=== PATIENT | female | born 1950 | race Caucasian/White ===

== ENCOUNTER 2016-10-27 19:01 | Emergency (ER) | payer MEDICARE, MEDICAID ==
[2016-10-27] MEDS ORDERED: NORMAL SALINE 1000 ML 1,000 ML IV ONE (19:23)
[2016-10-27] MEDS ORDERED: CEFTRIAXONE 1 GM/D5W RTU 50 ML IV ONE (19:25)
[2016-10-27] MEDS ORDERED: AZITHROMYCIN 250 MG TABLET PO ONE (19:25)
--- NOTE | 2016-10-27 19:27 | ER Document Report ---
ED General - General Chief Complaint: Shortness Of Breath Stated Complaint: DIFFICULTY BREATHING Notes: Patient is a 66 year old female who presents with concerns of increased shortness of breath and fever. States the symptoms have been getting progressively worse for the last 4 days. States this feels similar to when she' s had COPD exacerbations of bronchitis in the past. She has not seen her primary care doctor regarding today's concerns. She's been using her albuterol at home with minimal improvement. Nothing worsens or symptoms. Multiple sick contacts a similar illness. She is not had any vomiting or diarrhea. TRAVEL OUTSIDE OF THE [place] IN LAST 30 DAYS: No - Related Data Allergies/Adverse Reactions: ibuprofen [From Motrin] Allergy (Verified 08/22/15 17:44) SWELL Tetanus Vaccines and Toxoid [Tetanus] Allergy (Verified 08/22/15 17:44) Nausea Past Medical History - General Information source: Patient - Social History Smoking Status: Former Smoker Chew tobacco use (# tins/day): No Frequency of alcohol use: None Drug Abuse: None Lives with: Family Family History: Reviewed & Not Pertinent - Past Medical History Cardiac Medical History: Reports: Hx Hypercholesterolemia, Hx Hypertension Denies: Hx Coronary Artery Disease, Hx Heart Attack Pulmonary Medical History: Reports: Hx Asthma, Hx Bronchitis, Hx COPD, Hx Pneumonia Denies: Hx Tuberculosis Neurological Medical History: Denies: Hx Cerebrovascular Accident, Hx Seizures GI Medical History: Denies: Hx Hepatitis, Hx Hiatal Hernia, Hx Ulcer Musculoskeltal Medical History: Denies Hx Arthritis Psychiatric Medical History: Reports: Hx Depression Infectious Medical History: Denies: Hx Hepatitis Past Surgical History: Reports: Hx Orthopedic Surgery - Fourth left rib resection for tumor., Hx Tubal Ligation. Denies: Hx Hysterectomy, Hx Mastectomy , Hx Open Heart Surgery, Hx Pacemaker - Immunizations Hx Diphtheria, Pertussis, Tetanus Vaccination: Yes Hx Pneumococcal Vaccination: 07/28/10 Review of Systems - Review of Systems Notes: Constitutional: Negative for fever. HENT: Negative for sore throat. Eyes: Negative for visual changes. Cardiovascular: Negative for chest pain. Respiratory: Positive shortness of breath Gastrointestinal: Negative for abdominal pain, vomiting or diarrhea. Genitourinary: Negative for dysuria. Musculoskeletal: Negative for back pain. Skin: Negative for rash. Neurological: Negative for headaches, weakness or numbness. 10 point ROS negative except as marked above and in HPI. Physical Exam - Vital signs Vitals: Temp Pulse Resp BP Pulse Ox 99.9 F 96 20 110/47 L 97 10/27/16 19:12 10/27/16 19:12 10/27/16 19:12 10/27/16 19:12 10/27/16 19:12 Interpretation: Normal Notes: PHYSICAL EXAMINATION: GENERAL: Well-appearing, well-nourished and in no acute distress. HEAD: Atraumatic, normocephalic. EYES: Pupils equal round and reactive to light, extraocular movements intact, sclera anicteric, conjunctiva are normal. ENT: nares patent, oropharynx clear without exudates. Moist mucous membranes. NECK: Normal range of motion, supple without lymphadenopathy LUNGS: Breath sounds clear to auscultation bilaterally and equal. Scattered wheezing in all lung musa HEART: Regular rate and rhythm without murmurs ABDOMEN: Soft, nontender, normoactive bowel sounds. No guarding, no rebound. No masses appreciated. EXTREMITIES: Normal range of motion, no pitting or edema. No cyanosis. NEUROLOGICAL: No focal neurological deficits. Moves all extremities spontaneously and on command. PSYCH: Normal mood, normal affect. SKIN: Warm, Dry, normal turgor, no rashes or lesions noted. Course - Re-evaluation Re-evalutation: 10/27/16 19:26 Patient presents with fever, mild shortness of breath although no distress. Presentation is concerning for COPD exacerbation in the setting of possible influenza versus pneumonia. On exam, she has mild expiratory wheezing in all lung musa. She has already received nebulizers and Solu-Medrol prior to her arrival here in the emergency department. She did have an oral temperature of 101F prior to arrival. She has been started on ceftriaxone and azithromycin for presumptive treatment of a community-acquired pneumonia. Chest x-ray, cultures, lactate, and labs will be obtained. 10/27/16 22:14 Chest x-ray clear without evidence of pneumonia but given patient's fever will cover with azithromycin for presumed community-acquired pneumonia. She has remained well appearing here in the emergency department. The remainder of her labs are unremarkable. She no longer has shortness of breath. Lung exam remains clear. She is saturating 96% on room air at this time.At this time will discharge with return precautions and follow-up recommendations. Verbal discharge instructions given a the bedside and opportunity for questions given. Medication warnings reviewed. Patient is in agreement with this plan and has verbalized understanding of return precautions and the need for primary care follow-up in the next 24-72 hours. - Vital Signs Vital signs: Temp Pulse Resp BP Pulse Ox 99.9 F 96 18 134/52 H 94 10/27/16 19:12 10/27/16 19:12 10/27/16 22:01 10/27/16 22:01 10/27/16 22:01 - Laboratory Result Diagrams: 10/27/16 20:20 10/27/16 20:20 Laboratory results interpreted by me: 10/27/16 10/27/16 20:20 20:20 WBC 11.7 H RBC 3.48 L Hgb 11.0 L Hct 32.4 L Seg Neutrophils % 86.1 H Lymphocytes % 7.5 L Absolute Neutrophils 10.1 H Sodium 134.2 L Chloride 96 L Glucose 180 H - Diagnostic Test Radiology reviewed: Image reviewed, Reports reviewed Radiology results interpreted by me: 10/27/16 22:15 Chest x-ray: No acute infiltrate Discharge - Discharge Clinical Impression: Pneumonia Qualifiers: Pneumonia type: due to unspecified organism Laterality: unspecified laterality Lung location: unspecified part of lung Qualified Code(s): J18.9 - Pneumonia, unspecified organism Condition: Good Disposition: HOME, SELF-CARE Additional Instructions: You have been diagnosed with a pneumonia. It is very important that you take all of your antibiotics until they are gone even if you are feeling better. Please return to the emergency department immediately if you began having worsening shortness of breath, become confused, have worsening pain, pass out, have persistent vomiting that prevents you from being able to drink fluids for more than 12 hours, or have any other symptoms that are worrisome to you. Please follow-up with your primary care doctor in the next 1-2 days. You were seen for a COPD exacerbation. Your symptoms improved with treatment here in the emergency department. However, it is very important that you return to the emergency department immediately if you began to have worsening difficulty breathing that does not respond to your normal home nebulizers. You are also being sent home on a five-day course of steroids that you should start taking tomorrow. Please also take the antibiotics as prescribed. Please also follow closely with your primary care physician. You should eturn to emergency department if you develop fever greater than 101, persistent cough, persistent vomiting, pass out, or any other symptoms that are concerning to you. Prescriptions: Azithromycin 250 mg PO DAILY #4 tablet Prednisone [Deltasone 20 mg Tablet] 3 tab PO DAILY 5 Days
[2016-10-27 20:37] LABS: ABSOLUTE EOSINOPHILS # (AUTO) 0.1 10^3/uL (0.0-0.6); ABSOLUTE LYMPHOCYTES (AUTO) 0.9 10^3/uL (0.5-4.7); ABSOLUTE MONOCYTES (AUTO) 0.7 10^3/uL (0.1-1.4); ABSOLUTE NEUT (AUTO) 10.1 10^3/uL (1.7-8.2); BASOPHILS % (AUTO) 0.4 % (0-2); EOSINOPHILS % (AUTO) 0.4 % (0-6); HEMATOCRIT 32.4 % (36.0-47.0); HGB HCT DIFFERENCE 0.6; LYMPHOCYTES % (AUTO) 7.5 % (13-45); MEAN CORPUSCULAR HEMOGLOBIN 31.7 pg (27.0-33.4); MEAN CORPUSCULAR HGB CONC 34.1 g/dL (32.0-36.0); MEAN CORPUSCULAR VOLUME 93 fl (80-97); MONOCYTES % (AUTO) 5.6 % (3-13); RED BLOOD COUNT 3.48 10^6/uL (3.72-5.28); RED CELL DISTRIBUTION WIDTH 13.6 % (11.5-14.0); SEGMENTED NEUTROPHILS % (AUTO) 86.1 % (42-78); WHITE BLOOD COUNT 11.7 10^3/uL (4.0-10.5)
[2016-10-27 20:42] LABS: VENOUS BLOOD BASE EXCESS 3.9 mmol/L; VENOUS BLOOD HCO3 28.9 mmol/L (20-32); VENOUS BLOOD PCO2 45.5 mmHg (35-63); VENOUS BLOOD PH 7.42 (7.30-7.42)
[2016-10-27 20:49] LABS: ANION GAP 11 (5-19); BLOOD UREA NITROGEN 10 mg/dL (7-20); CALCIUM 9.5 mg/dL (8.4-10.2); CARBON DIOXIDE 27 mmol/L (22-30); CHLORIDE 96 mmol/L (98-107); CREATININE RESULT 0.65 mg/dL (0.52-1.25); GLUCOSE 180 mg/dL (75-110); POTASSIUM 4.5 mmol/L (3.6-5.0); SODIUM 134.2 mmol/L (137-145)
[2016-10-27 23:05] VITALS: BP 134/52
== END 2016-10-27 23:05 | disposition home or self-care (01) ==
LOC: ER 19:01
DX: J18.9 Pneumonia, unspecified organism (principal); R06.02 Shortness of breath; R50.9 Fever, unspecified; J44.1 Chronic obstructive pulmonary disease with (acute) exacerbation; Z87.891 Personal history of nicotine dependence
CPT/HCPCS: 99285; 96365; 96367; 36415; 87040; 85025; 80048; 82803; 83605; 87804; 71010; A9270; J7030; J0696

== ENCOUNTER 2016-10-28 14:13 | Inpatient (IN) | payer MEDICARE, MEDICAID ==
--- NOTE | 2016-10-28 14:30 | ER Document Report ---
ED Fever - General Time seen by provider: 14:30 Mode of Arrival: Medic Information source: Patient TRAVEL OUTSIDE OF THE [place] IN LAST 30 DAYS: No - HPI Patient complains to provider of: fever Associated symptoms: Other - See above <SEAN CEDENO - Last Filed: 10/28/16 14:34> <ANITHA MTZ - Last Filed: 10/28/16 19:44> - General Chief Complaint: Fever Stated Complaint: FEVER Notes: Patient is a 66 year old female who presents to the emergency department complaining of a fever onset today. Patient also complains of cough, back pain secondary to cough, and shortness of breath. Patient states that she is on 2L of oxygen at home. Patient was seen here yesterday for breathing difficulty and was treated with antibiotics and sent home with a prescription for antibiotics that she has not filled. PCP: [facility] Technician: Dr. Egan (SEAN CEDENO) - Related Data Allergies/Adverse Reactions: ibuprofen [From Motrin] Allergy (Verified 08/22/15 17:44) SWELL Tetanus Vaccines and Toxoid [Tetanus] Allergy (Verified 08/22/15 17:44) Nausea Home Medications: Current Home Medications Albuterol Sulfate [Proair Hfa Inhalation Aerosol 8.5 gm Mdi] 2 puff IH Q4 PRN [History] Amlodipine Besylate [Norvasc 5 mg Tablet] 5 mg PO DAILY 10/28/16 [History] Bupropion HCl [Wellbutrin Sr 150 mg Tablet] 150 mg PO Q12 10/28/16 [History] Fluticasone/Salmeterol [Advair 250-50 Diskus 14 Dose/Diskus] 1 inh IH Q12 [History] Hydroxyzine Pamoate [Vistaril 25 mg Capsule] 25 mg PO Q8 10/28/16 [History] Labetalol HCl [Trandate] 300 mg PO Q12 10/28/16 [History] Montelukast Sodium [Singulair 10 mg Tablet] 10 mg PO QHS 10/28/16 [History] Niacin (Inositol Niacinate) [Niacin 500 mg Capsule] 500 mg PO DAILY 10/28/16 [ History] Omeprazole 20 mg PO DAILY 10/28/16 [History] Potassium Gluconate 595 mg PO DAILY 10/28/16 [History] Primidone [Mysoline 250 Mg Tablet] 250 mg PO Q12 10/28/16 [History] Sertraline HCl [Zoloft] 200 mg PO Q12 10/28/16 [History] Tiotropium [place] [Spiriva Handihaler 5 Cap/Kit (18 Mcg/Cap)] 1 cap IH DAILY [History] Past Medical History - General Information source: Patient - Social History Smoking Status: Unknown if Ever Smoked Family History: Reviewed & Not Pertinent - Past Medical History Cardiac Medical History: Reports: Hx Hypercholesterolemia, Hx Hypertension Pulmonary Medical History: Reports: Hx Asthma, Hx Bronchitis, Hx COPD, Hx Pneumonia Psychiatric Medical History: Reports: Hx Depression Past Surgical History: Reports: Hx Orthopedic Surgery - Fourth left rib resection for tumor., Hx Tubal Ligation - Immunizations Hx Diphtheria, Pertussis, Tetanus Vaccination: Yes Hx Pneumococcal Vaccination: 07/28/10 <SEAN CEDENO - Last Filed: 10/28/16 14:34> Review of Systems - Review of Systems Constitutional: See HPI, Fever EENT: No symptoms reported Cardiovascular: No symptoms reported Respiratory: See HPI, Cough, Short of breath Gastrointestinal: No symptoms reported Genitourinary: No symptoms reported Female Genitourinary: No symptoms reported Musculoskeletal: See HPI, Back pain Skin: No symptoms reported Hematologic/Lymphatic: No symptoms reported Neurological/Psychological: No symptoms reported -: Yes All other systems reviewed and negative <SEAN CEDENO - Last Filed: 10/28/16 14:34> Physical Exam - Vital signs Interpretation: Normal - General General appearance: Appears well, Alert - HEENT Head: Normocephalic, Atraumatic - Respiratory Respiratory status: No respiratory distress Chest status: Nontender Breath sounds: Wheezing - Coarse wheeze bilaterally Chest palpation: Normal - Cardiovascular Rhythm: Regular Heart sounds: Normal auscultation Murmur: No - Back Back: Normal, Nontender - Extremities General upper extremity: Normal inspection General lower extremity: Normal inspection - Neurological Neuro grossly intact: Yes Cognition: Normal Orientation: AAOx4 Didi Coma Scale Eye Opening: Spontaneous [place] Coma Scale Verbal: Oriented [place] Coma Scale Motor: Obeys Commands Didi Coma Scale Total: 15 Speech: Normal - Psychological Associated symptoms: Normal affect, Normal mood - Skin Skin Temperature: Warm Skin Moisture: Dry Skin Color: Normal <SEAN CEDENO - Last Filed: 10/28/16 14:34> Course <SEAN CEDENO - Last Filed: 10/28/16 14:34> - Laboratory Result Diagrams: 10/28/16 14:37 10/28/16 14:37 <ANITHA MTZ - Last Filed: 10/28/16 19:44> - Re-evaluation Re-evalutation: 10/28/16 Patient is a 66-year-old female who comes in with difficulty breathing and fever. Patient was seen in the emergency Department yesterday and has failed outpatient treatment of pneumonia. Patient was discussed with the hospitalist service and will be admitted for bronchospasm, hypoxemia, and probable pneumonia. IV antibiotics have been started. Cultures have been sent. Patient agrees with this plan. Stable time of admission. (ANITHA MTZ) - Vital Signs Vital signs: Temp Pulse Resp BP Pulse Ox 98.0 F 88 19 142/55 H 99 10/28/16 18:52 10/28/16 19:00 10/28/16 18:52 10/28/16 18:52 10/28/16 18:52 - Laboratory Laboratory results interpreted by me: 10/28/16 10/28/16 10/28/16 14:37 14:37 14:37 RBC 3.20 L Hgb 10.1 L Hct 29.7 L Lymphocytes % 12.4 L BUN 6 L Glucose 155 H POC Glucose Lactic Acid 2.3 H Urine Blood Ur Leukocyte Esterase 10/28/16 10/28/16 16:24 16:34 RBC Hgb Hct Lymphocytes % BUN Glucose POC Glucose 146 H Lactic Acid Urine Blood LARGE H Ur Leukocyte Esterase LARGE H Critical Care Note - Critical Care Note Total time excluding time spent on procedures (mins): 35 - evaluation and management of respiratory distress, fever, altered will re-evaluations, coordination of admission, counseling patient <ANITHA MTZ - Last Filed: 10/28/16 19:44> Discharge <SEAN CEDENO - Last Filed: 10/28/16 14:34> - Discharge Admitting Provider: Hospitalist - [facility] Unit Admitted: [facility] <ANITHA MTZ - Last Filed: 10/28/16 19:44> - Discharge Clinical Impression: COPD exacerbation, Respiratory distress Pneumonia Qualifiers: Pneumonia type: due to unspecified organism Laterality: unspecified laterality Lung location: unspecified part of lung Qualified Code(s): J18.9 - Pneumonia, unspecified organism Condition: Stable Disposition: ADMITTED INPATIENT Scribe Attestation: 10/28/16 19:44 I personally performed the services described in the documentation, reviewed and edited the documentation which was dictated to the scribe in my presence, and it accurately records my words and actions. (ANITHA MTZ) Scribe Documentation - Scribe Written by Anna:: anna Marie, 10/28/16, 1443 acting as scribe for :: Carol <SEAN CEDENO - Last Filed: 10/28/16 14:34>
[2016-10-28] MEDS ORDERED: METHYLPREDNISOLONE INJ 125 MG/2 ML SDV IV ONE (14:37)
[2016-10-28] MEDS ORDERED: IPRATROPIUM/ALBUTEROL 0.5-2.5 MG/3 ML AMPUL NEB ONE (14:37)
[2016-10-28] MEDS ORDERED: LEVOFLOXACIN 750 MG/D5W RTU 150 ML IV ONE (14:38)
[2016-10-28 14:50] LABS: VENOUS BLOOD BASE EXCESS -2.8 mmol/L; VENOUS BLOOD HCO3 21.8 mmol/L (20-32); VENOUS BLOOD PCO2 37.4 mmHg (35-63); VENOUS BLOOD PH 7.38 (7.30-7.42)
[2016-10-28 14:51] LABS: ABSOLUTE BASOPHILS # (AUTO) 0.1 10^3/uL (0.0-0.2); ABSOLUTE EOSINOPHILS # (AUTO) 0.1 10^3/uL (0.0-0.6); ABSOLUTE LYMPHOCYTES (AUTO) 1.3 10^3/uL (0.5-4.7); ABSOLUTE MONOCYTES (AUTO) 1.1 10^3/uL (0.1-1.4); ABSOLUTE NEUT (AUTO) 7.8 10^3/uL (1.7-8.2); BASOPHILS % (AUTO) 0.5 % (0-2); EOSINOPHILS % (AUTO) 0.8 % (0-6); HEMATOCRIT 29.7 % (36.0-47.0); HEMOGLOBIN 10.1 g/dL (12.0-15.5); HGB HCT DIFFERENCE 0.6; LYMPHOCYTES % (AUTO) 12.4 % (13-45); MEAN CORPUSCULAR HEMOGLOBIN 31.5 pg (27.0-33.4); MEAN CORPUSCULAR VOLUME 93 fl (80-97); MONOCYTES % (AUTO) 10.4 % (3-13); SEGMENTED NEUTROPHILS % (AUTO) 75.9 % (42-78); WHITE BLOOD COUNT 10.3 10^3/uL (4.0-10.5)
[2016-10-28 14:56] LABS: PROTHROMBIN TIME 13.6 SEC (11.4-15.4)
[2016-10-28 15:09] LABS: ALANINE AMINOTRANSFERASE 19 U/L (9-52); ALKALINE PHOSPHATASE 113 U/L (38-126); ANION GAP 16 (5-19); ASPARTATE AMINO TRANSFERASE 20 U/L (14-36); BILIRUBIN,DIRECT 0.4 mg/dL (0.0-0.4); BILIRUBIN,TOTAL 0.6 mg/dL (0.2-1.3); BLOOD UREA NITROGEN 6 mg/dL (7-20); CALCIUM 8.8 mg/dL (8.4-10.2); CARBON DIOXIDE 23 mmol/L (22-30); CHLORIDE 101 mmol/L (98-107); GLUCOSE 155 mg/dL (75-110); POTASSIUM 3.8 mmol/L (3.6-5.0); SODIUM 140.2 mmol/L (137-145); TOTAL PROTEIN 7.2 g/dL (6.3-8.2)
[2016-10-28] MEDS ORDERED: CEFEPIME 1 GM/D5W RTU 50 ML IV ONE (15:25)
[2016-10-28] MEDS ORDERED: VANCOMYCIN HCL INJ 1000 MG VIAL IV ONE (15:26)
[2016-10-28] MEDS ORDERED: NORMAL SALINE 1000 ML 1,000 ML IV PRN (16:36)
[2016-10-28 16:49] LABS: APPEARANCE,URINE SLIGHTLY-CLOUDY; BILIRUBIN,URINE NEGATIVE (NEGATIVE); GLUCOSE, URINE NEGATIVE (NEGATIVE); KETONES,URINE NEGATIVE (NEGATIVE); LEUKOCYTE ESTERASE,URINE LARGE (NEGATIVE); NITRITE,URINE NEGATIVE (NEGATIVE); PROTEIN,URINE NEGATIVE (NEGATIVE); URINE SPECIFIC GRAVITY 1.012; UROBILINOGEN,URINE NEGATIVE mg/dL (<2.0)
[2016-10-28] MEDS ORDERED: BENZONATATE 100 MG CAPSULE PO ONE (17:00)
[2016-10-28] MEDS ORDERED: ENOXAPARIN SODIUM INJ 40 MG/0.4 ML DISP.SYRIN SUBCUT ONE (18:00)
--- NOTE | 2016-10-28 18:55 | PDOC H&P ---
History of Present Illness Admission Date/PCP: 10/28/16 16:36 Patient complains of: Shortness of breath and fever History of Present Illness: ANGELIQUE PETIT is a 66 year old female who presents to the emergency department complaining of a fever onset today. Patient also complains of cough, back pain secondary to cough, and shortness of breath. Patient states that she is on 2L of oxygen at home. Patient was seen here yesterday for breathing difficulty and was treated with antibiotics and sent home with a prescription for antibiotics that she has not filled. Upon evaluation in the ED patient was found to be in [id number] respiratory distress with hypoxemia A chest x-ray showed an infiltrate She was subsequently admitted under hospitalist service to [facility] for further care and evaluation Past Medical History Cardiac Medical History: Reports: Hyperlipidema, Hypertension Denies: Coronary Artery Disease, Myocardial Infarction Pulmonary Medical History: Reports: Asthma, Bronchitis, Chronic Obstructive Pulmonary Disease (COPD), Pneumonia Denies: Tuberculosis Neurological Medical History: Denies: Seizures GI Medical History: Reports: Gastroesophageal Reflux Disease Denies: Hepatitis, Hiatal Hernia Musculoskeltal Medical History: Denies: Arthritis Psychiatric Medical History: Reports: Depression Hematology: Denies: Anemia, Sickle Cell Disease Past Surgical History Past Surgical History: Reports: Orthopedic Surgery - Fourth left rib resection for tumor., Tubal Ligation Denies: Amputation, Hysterectomy, Mastectomy, Pacemaker Social History Smoking Status: Current Every Day Smoker Cigarettes Packs Per Day: 10 Frequency of Alcohol Use: None Hx Recreational Drug Use: No Hx Prescription Drug Abuse: No - Advance Directive Resuscitation Status: Full Code Surrogate healthcare decision maker:: Anthony José Family History Family History: Reviewed & Not Pertinent, Malignancy - Several members in the family mother father brother had cancer. denies: None - Frustrating that the appropriate be off from Parental Family History Reviewed: Yes Children Family History Reviewed: Yes Sibling(s) Family History Reviewed.: Yes Medication/Allergy Home Medications: Albuterol Sulfate [Proair Hfa Inhalation Aerosol 8.5 gm Mdi] 2 puff IH Q4 PRN Amlodipine Besylate [Norvasc 5 mg Tablet] 5 mg PO DAILY 10/28/16 Bupropion HCl [Wellbutrin Sr 150 mg Tablet] 150 mg PO Q12 10/28/16 Fluticasone/Salmeterol [Advair 250-50 Diskus 14 Dose/Diskus] 1 inh IH Q12 Hydroxyzine Pamoate [Vistaril 25 mg Capsule] 25 mg PO Q8 10/28/16 Labetalol HCl [Trandate] 300 mg PO Q12 10/28/16 Montelukast Sodium [Singulair 10 mg Tablet] 10 mg PO QHS 10/28/16 Niacin (Inositol Niacinate) [Niacin 500 mg Capsule] 500 mg PO DAILY 10/28/16 Omeprazole 20 mg PO DAILY 10/28/16 Potassium Gluconate 595 mg PO DAILY 10/28/16 Primidone [Mysoline 250 Mg Tablet] 250 mg PO Q12 10/28/16 Sertraline HCl [Zoloft] 200 mg PO Q12 10/28/16 Tiotropium [place] [Spiriva Handihaler 5 Cap/Kit (18 Mcg/Cap)] 1 cap IH DAILY Allergies/Adverse Reactions: ibuprofen [From Motrin] Allergy (Verified 08/22/15 17:44) SWELL Tetanus Vaccines and Toxoid [Tetanus] Allergy (Verified 08/22/15 17:44) Nausea Review of Systems Constitutional: PRESENT: chills, fatigue, fever(s), weakness. ABSENT: headache( s), weight gain, weight loss Eyes: ABSENT: visual disturbances Ears: ABSENT: hearing changes Cardiovascular: ABSENT: chest pain, dyspnea on exertion, edema, orthropnea, palpitations Respiratory: PRESENT: cough, dyspnea, sputum. ABSENT: hemoptysis Gastrointestinal: ABSENT: abdominal pain, constipation, diarrhea, hematemesis, hematochezia, nausea, vomiting Genitourinary: ABSENT: dysuria, hematuria Musculoskeletal: ABSENT: joint swelling Integumentary: ABSENT: rash, wounds Neurological: ABSENT: abnormal gait, abnormal speech, confusion, dizziness, focal weakness, syncope Psychiatric: ABSENT: anxiety, depression, homidical ideation, suicidal ideation Endocrine: ABSENT: cold intolerance, heat intolerance, polydipsia, polyuria Hematologic/Lymphatic: ABSENT: easy bleeding, easy bruising Physical Exam Vital Signs: Temp Pulse Resp BP Pulse Ox 98.6 F 112 H 19 135/73 H 98 10/28/16 18:04 10/28/16 14:21 10/28/16 18:01 10/28/16 18:00 10/28/16 18:01 General appearance: PRESENT: mild distress, thin Head exam: PRESENT: atraumatic, normocephalic Eye exam: PRESENT: conjunctiva pink, EOMI, PERRLA. ABSENT: scleral icterus Neck exam: ABSENT: carotid bruit, JVD, lymphadenopathy, thyromegaly Respiratory exam: PRESENT: decreased breath sounds, retraction, symmetrical, tachypnea, wheezes Cardiovascular exam: PRESENT: tachycardia. ABSENT: diastolic murmur, gallop, systolic murmur Pulses: PRESENT: normal dorsalis pedis pul GI/Abdominal exam: PRESENT: normal bowel sounds, soft. ABSENT: distended, guarding, mass, organolmegaly, rebound, tenderness Extremities exam: PRESENT: full ROM. ABSENT: calf tenderness, clubbing, pedal edema Neurological exam: PRESENT: alert, awake, oriented to person, oriented to place , oriented to time, oriented to situation, CN II-XII grossly intact. ABSENT: motor sensory deficit Results Laboratory Results: Labs- Last Values WBC 10.3 10^3/uL (4.0-10.5) 10/28/16 14:37 RBC 3.20 10^6/uL (3.72-5.28) L 10/28/16 14:37 Hgb 10.1 g/dL (12.0-15.5) L 10/28/16 14:37 Hct 29.7 % (36.0-47.0) L 10/28/16 14:37 MCV 93 fl (80-97) 10/28/16 14:37 MCH 31.5 pg (27.0-33.4) 10/28/16 14:37 MCHC 34.0 g/dL (32.0-36.0) 10/28/16 14:37 RDW 14.0 % (11.5-14.0) 10/28/16 14:37 Plt Count 317 10^3/uL (150-450) 10/28/16 14:37 Seg Neutrophils % 75.9 % (42-78) 10/28/16 14:37 Lymphocytes % 12.4 % (13-45) L 10/28/16 14:37 Monocytes % 10.4 % (3-13) 10/28/16 14:37 Eosinophils % 0.8 % (0-6) 10/28/16 14:37 Basophils % 0.5 % (0-2) 10/28/16 14:37 Absolute Neutrophils 7.8 10^3/uL (1.7-8.2) 10/28/16 14:37 Absolute Lymphocytes 1.3 10^3/uL (0.5-4.7) 10/28/16 14:37 Absolute Monocytes 1.1 10^3/uL (0.1-1.4) 10/28/16 14:37 Absolute Eosinophils 0.1 10^3/uL (0.0-0.6) 10/28/16 14:37 Absolute Basophils 0.1 10^3/uL (0.0-0.2) 10/28/16 14:37 PT 13.6 SEC (11.4-15.4) 10/28/16 14:37 INR 1.01 10/28/16 14:37 VBG pH 7.38 (7.30-7.42) 10/28/16 14:37 VBG pCO2 37.4 mmHg (35-63) 10/28/16 14:37 VBG HCO3 21.8 mmol/L (20-32) 10/28/16 14:37 VBG Base Excess -2.8 mmol/L 10/28/16 14:37 Sodium 140.2 mmol/L (137-145) 10/28/16 14:37 Potassium 3.8 mmol/L (3.6-5.0) 10/28/16 14:37 Chloride 101 mmol/L (98-107) 10/28/16 14:37 Carbon Dioxide 23 mmol/L (22-30) 10/28/16 14:37 Anion Gap 16 (5-19) 10/28/16 14:37 BUN 6 mg/dL (7-20) L 10/28/16 14:37 Creatinine 0.60 mg/dL (0.52-1.25) 10/28/16 14:37 Est GFR ( Amer) > 60 (>60) 10/28/16 14:37 Est GFR (Non-Af Amer) > 60 (>60) 10/28/16 14:37 Glucose 155 mg/dL (75-110) H 10/28/16 14:37 POC Glucose 146 mg/dL (70-110) H 10/28/16 16:24 Lactic Acid 2.3 mmol/L (0.7-2.1) H 10/28/16 14:37 Calcium 8.8 mg/dL (8.4-10.2) 10/28/16 14:37 Total Bilirubin 0.6 mg/dL (0.2-1.3) 10/28/16 14:37 Direct Bilirubin 0.4 mg/dL (0.0-0.4) 10/28/16 14:37 Indirect Bilirubin Not Reportable 10/28/16 14:37 Neonat Total Bilirubin Not Reportable 10/28/16 14:37 AST 20 U/L (14-36) 10/28/16 14:37 ALT 19 U/L (9-52) 10/28/16 14:37 Alkaline Phosphatase 113 U/L (38-126) 10/28/16 14:37 Total Protein 7.2 g/dL (6.3-8.2) 10/28/16 14:37 Albumin 4.0 g/dL (3.5-5.0) 10/28/16 14:37 Urine Color YELLOW 10/28/16 16:34 Urine Appearance SLIGHTLY-CLOUDY 10/28/16 16:34 Urine pH 5.0 (5.0-9.0) 10/28/16 16:34 Ur Specific [place] 1.012 10/28/16 16:34 Urine Protein NEGATIVE mg/dL (NEGATIVE) 10/28/16 16:34 Urine Glucose (UA) NEGATIVE mg/dL (NEGATIVE) 10/28/16 16:34 Urine Ketones NEGATIVE mg/dL (NEGATIVE) 10/28/16 16:34 Urine Blood LARGE (NEGATIVE) H 10/28/16 16:34 Urine Nitrite NEGATIVE (NEGATIVE) 10/28/16 16:34 Urine Bilirubin NEGATIVE (NEGATIVE) 10/28/16 16:34 Urine Urobilinogen NEGATIVE mg/dL (<2.0) 10/28/16 16:34 Ur Leukocyte Esterase LARGE (NEGATIVE) H 10/28/16 16:34 Urine WBC (Auto) 10 /HPF 10/28/16 16:34 Urine RBC (Auto) 7 /HPF 10/28/16 16:34 Squamous Epi Cells Auto 3 /HPF 10/28/16 16:34 Urine Mucus (Auto) RARE /LPF 10/28/16 16:34 Urine Ascorbic Acid NEGATIVE (NEGATIVE) 10/28/16 16:34 EKG Comments: SINUS TACHYCARDIA Impressions: Chest X-Ray 10/28/16 00:00 IMPRESSION: Minimal infiltrate right lung base medially. Increasing density laterally of the left chest as noted above. Assessment & Plan - Diagnosis (1) COPD exacerbation Is this a current diagnosis for this admission?: YesPlan: We will treat with nebs steroids O2 supplementation (2) Pneumonia Qualifiers: Pneumonia type: due to unspecified organism Lung location: unspecified part of lung Is this a current diagnosis for this admission?: YesPlan: Treat with cefepime and Levaquin; patient is a smoker and may have gram- negative infections We will screen the the patient for influenza (3) Hypoxemia Is this a current diagnosis for this admission?: YesPlan: Acute hypoxemic respiratory failure O2 supplementation Patient does not need BiPAP at this time (4) Tobacco abuse Is this a current diagnosis for this admission?: YesPlan: Nicotine patch (5) Full code status Is this a current diagnosis for this admission?: Yes (6) DVT prophylaxis Is this a current diagnosis for this admission?: Yes - Time Time Spent with patient: Patient was admitted to [facility] as an inpatient Time Spent: Greater than 70 Minutes
--- NOTE | 2016-10-28 19:10 | EKG REPORT ---
SEVERITY:- OTHERWISE NORMAL ECG - SINUS TACHYCARDIA : Confirmed by: Jessica Salguero MD 28-Oct-2016 19:10:15
[2016-10-28] MEDS ORDERED: CEFEPIME 1 GM/D5W RTU 1 GM/50 ML RTUPB IV ONE (20:00)
[2016-10-28] MEDS: IPRATROPIUM/ALBUTEROL 0.5-2.5 MG/3 ML AMPUL NEB SCH (20:21)
[2016-10-28] MEDS ORDERED: MONTELUKAST SODIUM 10 MG TABLET PO SCH (22:00)
[2016-10-28] MEDS ORDERED: METHYLPREDNISOLONE INJ 125 MG/2 ML SDV IV SCH (22:00)
[2016-10-28] MEDS ORDERED: SERTRALINE HCL 50 MG TABLET PO SCH (22:00)
[2016-10-28] MEDS ORDERED: (PENDING PHARMACY ID) (Sertraline Hcl [Zoloft] 200 MG) PO SCH (22:00)
[2016-10-28] MEDS ORDERED: (PENDING PHARMACY ID) (Bupropion Hcl [Wellbutrin Sr 150 Mg Tablet] 150 MG) PO SCH (22:00)
[2016-10-28] MEDS: BENZONATATE 100 MG CAPSULE PO SCH (22:27)
[2016-10-28] MEDS: LABETALOL HCL 200 MG TABLET PO SCH (22:28)
[2016-10-28] MEDS: BUPROPION HCL 100 MG TABLET PO SCH (22:28)
[2016-10-28] MEDS: METHYLPREDNISOLONE INJ 125 MG/2 ML SDV IV SCH (22:30)
[2016-10-28] MEDS: FLUTICASONE/SALMETEROL DISKUS 250-50 MCG/DOSE IH SCH (22:35)
[2016-10-28] MEDS: PRIMIDONE 250 MG TABLET PO SCH (22:35)
[2016-10-29] MEDS ORDERED: IPRATROPIUM/ALBUTEROL 0.5-2.5 MG/3 ML AMPUL NEB PRN (00:38)
[2016-10-29] MEDS ORDERED: CHLORPHENIRAMINE MALEATE 4 MG TABLET PO PRN (01:32)
[2016-10-29] MEDS: GUAIFENESIN SYRP 200 MG/10 ML UDC PO PRN ×2 (01:40→09:01)
[2016-10-29] MEDS ORDERED: CHLORPHENIRAMINE MALEATE 4 MG TABLET ONE (02:18)
[2016-10-29 04:36] LABS: ABSOLUTE LYMPHOCYTES (AUTO) 1.2 10^3/uL (0.5-4.7); ABSOLUTE MONOCYTES (AUTO) 0.8 10^3/uL (0.1-1.4); ABSOLUTE NEUT (AUTO) 7.6 10^3/uL (1.7-8.2); BASOPHILS % (AUTO) 0.2 % (0-2); EOSINOPHILS % (AUTO) 0.1 % (0-6); HEMOGLOBIN 9.5 g/dL (12.0-15.5); HGB HCT DIFFERENCE 0.5; LYMPHOCYTES % (AUTO) 12.4 % (13-45); MEAN CORPUSCULAR HEMOGLOBIN 31.5 pg (27.0-33.4); MEAN CORPUSCULAR HGB CONC 34.1 g/dL (32.0-36.0); MEAN CORPUSCULAR VOLUME 93 fl (80-97); MONOCYTES % (AUTO) 8.7 % (3-13); RED BLOOD COUNT 3.03 10^6/uL (3.72-5.28); RED CELL DISTRIBUTION WIDTH 13.6 % (11.5-14.0); SEGMENTED NEUTROPHILS % (AUTO) 78.6 % (42-78); WHITE BLOOD COUNT 9.6 10^3/uL (4.0-10.5)
[2016-10-29 04:57] LABS: ALANINE AMINOTRANSFERASE 23 U/L (9-52); ALBUMIN 3.6 g/dL (3.5-5.0); ALKALINE PHOSPHATASE 118 U/L (38-126); ANION GAP 14 (5-19); ASPARTATE AMINO TRANSFERASE 16 U/L (14-36); BILIRUBIN,DIRECT 0.3 mg/dL (0.0-0.4); BILIRUBIN,TOTAL 0.3 mg/dL (0.2-1.3); BLOOD UREA NITROGEN 5 mg/dL (7-20); CALCIUM 8.8 mg/dL (8.4-10.2); CARBON DIOXIDE 23 mmol/L (22-30); CHLORIDE 104 mmol/L (98-107); CHOLESTEROL 165.52 mg/dL (0-200); Direct HDL 47 mg/dL (>40); GLUCOSE 144 mg/dL (75-110); POTASSIUM 3.8 mmol/L (3.6-5.0); SODIUM 141.4 mmol/L (137-145); TOTAL PROTEIN 6.3 g/dL (6.3-8.2); TRIGLYCERIDES 103 mg/dL (<150)
[2016-10-29] MEDS: CEFEPIME 1 GM/D5W RTU 1 GM/50 ML RTUPB IV SCH ×2 (05:04→17:35)
[2016-10-29] MEDS: BUPROPION HCL 100 MG TABLET PO SCH ×3 (05:06→22:16)
[2016-10-29] MEDS: BENZONATATE 100 MG CAPSULE PO SCH (05:06)
[2016-10-29] MEDS: METHYLPREDNISOLONE INJ 125 MG/2 ML SDV IV SCH ×3 (05:06→22:15)
[2016-10-29 05:08] LABS: DIRECT LDL 73 mg/dL (<100)
[2016-10-29] MEDS: ENOXAPARIN SODIUM INJ 40 MG/0.4 ML DISP.SYRIN SUBCUT SCH (07:53)
[2016-10-29] MEDS: IPRATROPIUM/ALBUTEROL 0.5-2.5 MG/3 ML AMPUL NEB SCH ×3 (08:50→20:15)
[2016-10-29] MEDS: NIACIN 500 MG TABLET.SA PO SCH (09:01)
[2016-10-29] MEDS: LANSOPRAZOLE 15 MG TAB.RAP.DR PO SCH (09:01)
[2016-10-29] MEDS: AMLODIPINE BESYLATE 5 MG TABLET PO SCH (09:02)
[2016-10-29] MEDS: LABETALOL HCL 200 MG TABLET PO SCH ×2 (09:02→22:16)
[2016-10-29] MEDS: LEVOFLOXACIN 750 MG/D5W RTU 150 ML IV SCH (09:03)
[2016-10-29] MEDS: FLUTICASONE/SALMETEROL DISKUS 250-50 MCG/DOSE IH SCH ×2 (09:08→22:19)
[2016-10-29] MEDS: PRIMIDONE 250 MG TABLET PO SCH ×2 (09:09→22:19)
[2016-10-29] MEDS ORDERED: HYDROCODONE BIT/HOMATROPINE SYRUP 5 ML UDCUP PO PRN (09:42)
[2016-10-29] MEDS ORDERED: NIACIN 500 MG PO SCH (10:00)
[2016-10-29] MEDS: FLUTICASONE NASAL SPRAY 50 MCG/SPRY 120 SPRAY/16 GM NASL SCH ×2 (10:00→22:20)
[2016-10-29] MEDS ORDERED: TIOTROPIUM BROMIDE DPI 5 CAP/KIT (18 MCG/CAP) IH SCH (10:00)
[2016-10-29] MEDS: HYDROCODONE BIT/HOMATROPINE 5-1.5 MG TABLET PO PRN ×3 (10:48→22:15)
[2016-10-29] MEDS: ACETAMINOPHEN 325 MG TABLET PO PRN ×3 (10:48→22:14)
[2016-10-29] MEDS: SERTRALINE HCL 50 MG TABLET PO SCH ×4 (10:51→22:15)
--- NOTE | 2016-10-29 11:57 | Physician Advisory Note ---
Physician Advisor ProgressNote .: Pursuant to the plan for [facility], I have reviewed the medical record for this patient. Physician Advisor Statement: Possible documentation opportunities if attending agrees: 1. "Acute on Chronic Hypoxemic Respiratory Failure, baseline on 2L O2" [H&P already nicely documents (+)retractions, continued resp distress] 2. "Pneumonia of RLL, suspect gram-neg" [H&P already nicely documents suspicion of gram-neg organism - just need to document involved lobe] 3. Please document explicitly the ways pt remains different from her chronically SOB baseline, to support her need for continued hospital care. 4. "possible sepsis due to pneumonia, present on admission, with associated fever/tachycardia/tachypnea/high lactate of 2.3, ruled out/in" - [ If you don't think she had it, just say it was ruled out, but clearly attg thought about it, with repeat lactate level, etc, & that supports her initial severity of illness/need for hospital] 5. 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 Discussion: 66yo female w/ chronic co-morbidities including - presented 4/3 PM to ED w/ (+) Attending ordered Status: Pt not responding adequately to outpt tx from day prior to arrival (given abx in ED then before Rx given). Nsg note at 14:45 on 10/28 documents pt in tripod position, splinting, accessory muscle use. Nsg note at 18:35 continued to document pt having labored breathing, retracting while on more O2 than her usual. Lactate level was even worse, 3.1, on repeat 10/28. Pt remains persistently/recurrently tachycardic & tachypneic on 10/29, despite ongoing aggressive tx. Tx in inpatient hospital setting medically reasonable & necessary to protect pt' s health, safety, & medical condition. appropriate for Inpt status. Thanks for your help with documentation accuracy/specificity improvement! Kristen Mercado MD [facility] Physician Advisor, Fellow of Hospital Medicine
[2016-10-29] MEDS ORDERED: HYDRALAZINE HCL INJ/PF 20 MG/1 ML SDV IV PRN (12:26)
--- NOTE | 2016-10-29 12:35 | PDOC PROGRESS REPORT ---
Subjective Progress Note for:: 10/29/16 Subjective:: Reason for follow-up visit: Acute on chronic hypoxic respiratory failure, acute bacterial bronchitis Hospital course: Per H&P "ANGELIQUE PETIT is a 66 year old female who presents to the emergency department complaining of a fever onset today. Patient also complains of cough, back pain secondary to cough, and shortness of breath. Patient states that she is on 2L of oxygen at home. Patient was seen here yesterday for breathing difficulty and was treated with antibiotics and sent home with a prescription for antibiotics that she has not filled. Upon evaluation in the ED patient was found to be in [id number] respiratory distress with hypoxemia A chest x-ray showed an infiltrate She was subsequently admitted under hospitalist service to [facility] for further care and evaluation." I inherited her care this morning and she still complains of dry hacking cough leaving her breathless, persistent wheezing, easy fatigability with generalized weakness. She denies chest pain, chest wall pain, either, chills, nausea, vomiting, diarrhea. ROS: per HPI plus a total of 10 systems reviewed, pertinent positives and negatives noted above, remaining systems negative. Physical Exam Vital Signs: Temp Pulse Resp BP Pulse Ox 98.4 F 110 H 22 H 183/70 H 97 10/29/16 08:25 10/29/16 08:50 10/29/16 08:50 10/29/16 08:25 10/29/16 08:50 Intake & Output 10/28/16 10/29/16 10/30/16 06:59 06:59 06:59 Intake Total 2375 Balance 2375 Weight 49.8 kg EXAM GENERAL: NAD; well developed, thin; alert and oriented to person, place, time, situation HEENT: normocephalic, atraumatic; no conjunctival injection, no scleral icterus ; oral mucosa moist; supplemental O2 at 4 L/m RESPIRATORY: Intercostal accessory muscle use, mild increased WOB, poor air entry bilaterally; bilateral wheezes and rhonchi; basilar inspiratory crackles CARDIO: no JVD; RRR; no systolic murmur; sinus tachycardia GI: soft; nondistended; normal bowel sounds; no rebound, rigidity, guarding; nontender VASCULAR: no pallor; 2+ radial pulse, normal capillary refill EXTREMITIES: no calf tender; no palpable cords in calf; no clubbing, cyanosis , pedal edema PSYCH: normal affect, normal mood, calm, cooperative SKIN: warm; moist; no petechiae; no telengectasias; no jaundice; no rash Results Laboratory Results: 10/29/16 03:57 10/29/16 03:57 10/28/16 10/29/16 10/29/16 18:55 03:57 03:57 WBC 9.6 RBC 3.03 L Hgb 9.5 L Hct 28.0 L MCV 93 MCH 31.5 MCHC 34.1 RDW 13.6 Plt Count 275 Seg Neutrophils % 78.6 H Lymphocytes % 12.4 L Monocytes % 8.7 Eosinophils % 0.1 Basophils % 0.2 Absolute Neutrophils 7.6 Absolute Lymphocytes 1.2 Absolute Monocytes 0.8 Absolute Eosinophils 0.0 Absolute Basophils 0.0 Sodium 141.4 Potassium 3.8 Chloride 104 Carbon Dioxide 23 Anion Gap 14 BUN 5 L Creatinine 0.50 L Est GFR ( Amer) > 60 Est GFR (Non-Af Amer) > 60 Glucose 144 H Lactic Acid 3.1 H Calcium 8.8 Total Bilirubin 0.3 AST 16 ALT 23 Alkaline Phosphatase 118 Total Protein 6.3 Albumin 3.6 Triglycerides 103 Cholesterol 165.52 LDL Cholesterol Direct 73 VLDL Cholesterol 21.0 HDL Cholesterol 47 TSH 10/29/16 03:57 WBC RBC Hgb Hct MCV MCH MCHC RDW Plt Count Seg Neutrophils % Lymphocytes % Monocytes % Eosinophils % Basophils % Absolute Neutrophils Absolute Lymphocytes Absolute Monocytes Absolute Eosinophils Absolute Basophils Sodium Potassium Chloride Carbon Dioxide Anion Gap BUN Creatinine Est GFR ( Amer) Est GFR (Non-Af Amer) Glucose Lactic Acid Calcium Total Bilirubin AST ALT Alkaline Phosphatase Total Protein Albumin Triglycerides Cholesterol LDL Cholesterol Direct VLDL Cholesterol HDL Cholesterol TSH 0.56 Impressions: Chest X-Ray 10/28/16 00:00 IMPRESSION: Minimal infiltrate right lung base medially. Increasing density laterally of the left chest as noted above. Status: Image reviewed by me - Agree with radiology Assessment & Plan - Diagnosis (1) Acute bacterial bronchitis Is this a current diagnosis for this admission?: YesPlan: Minimal improvement and certainly not back to baseline. Continue empiric antibiotics, high-dose systemic steroids, supplemental O2. Add incentive spirometer and flutter valve. (2) Acute and chronic respiratory failure with hypoxia Is this a current diagnosis for this admission?: YesPlan: Mildly improved, not back to baseline. Treat as noted above. (3) Tobacco dependence Is this a current diagnosis for this admission?: YesPlan: Continue transdermal nicotine replacement. Not interested in tobacco cessation at this time. (4) COPD with acute exacerbation Is this a current diagnosis for this admission?: YesPlan: Not back to baseline. Continue systemic treatment noted #1 (5) Do not resuscitate Is this a current diagnosis for this admission?: YesPlan: This was clarified overnight with Dr. Aguilar and confirmed with me this morning. - Time Time Spent with patient: 35 or more minutes Medications reviewed and adjusted accordingly: Yes Anticipated discharge: Home Within: within 72 hours - Plan Summary Plan Summary: She is very slow to improve in spite of aggressive treatment noted above, will likely require at least 2 additional nights in the hospital.
[2016-10-30] MEDS: HYDROCODONE BIT/HOMATROPINE 5-1.5 MG TABLET PO PRN ×2 (04:24→17:21)
[2016-10-30] MEDS: ACETAMINOPHEN 325 MG TABLET PO PRN (04:24)
[2016-10-30] MEDS: METHYLPREDNISOLONE INJ 125 MG/2 ML SDV IV SCH ×3 (05:17→22:01)
[2016-10-30] MEDS: BUPROPION HCL 100 MG TABLET PO SCH ×3 (05:17→22:00)
[2016-10-30] MEDS: CEFEPIME 1 GM/D5W RTU 1 GM/50 ML RTUPB IV SCH ×2 (05:18→17:21)
[2016-10-30] MEDS: IPRATROPIUM/ALBUTEROL 0.5-2.5 MG/3 ML AMPUL NEB SCH ×3 (08:40→20:58)
[2016-10-30] MEDS: NIACIN 500 MG TABLET.SA PO SCH (09:24)
[2016-10-30] MEDS: LABETALOL HCL 200 MG TABLET PO SCH ×2 (09:24→21:59)
[2016-10-30] MEDS: LEVOFLOXACIN 750 MG/D5W RTU 150 ML IV SCH (09:24)
[2016-10-30] MEDS: AMLODIPINE BESYLATE 5 MG TABLET PO SCH (09:25)
[2016-10-30] MEDS: ENOXAPARIN SODIUM INJ 40 MG/0.4 ML DISP.SYRIN SUBCUT SCH (09:26)
[2016-10-30] MEDS: LANSOPRAZOLE 15 MG TAB.RAP.DR PO SCH (09:26)
[2016-10-30] MEDS: SERTRALINE HCL 50 MG TABLET PO SCH ×4 (09:26→22:00)
[2016-10-30] MEDS: FLUTICASONE NASAL SPRAY 50 MCG/SPRY 120 SPRAY/16 GM NASL SCH ×2 (09:28→22:01)
[2016-10-30] MEDS: FLUTICASONE/SALMETEROL DISKUS 250-50 MCG/DOSE IH SCH ×2 (09:28→22:01)
[2016-10-30] MEDS: PRIMIDONE 250 MG TABLET PO SCH ×2 (09:28→22:00)
[2016-10-30] MEDS ORDERED: MORPHINE SULFATE 10 MG/ML INJ IV PRN (10:12)
--- NOTE | 2016-10-30 13:37 | PDOC PROGRESS REPORT ---
Subjective Progress Note for:: 10/30/16 Subjective:: Reason for follow-up visit: Acute on chronic hypoxic respiratory failure, acute bacterial bronchitis Hospital course: Per H&P "ANGELIQUE PETIT is a 66 year old female who presents to the emergency department complaining of a fever onset today. Patient also complains of cough, back pain secondary to cough, and shortness of breath. Patient states that she is on 2L of oxygen at home. Patient was seen here yesterday for breathing difficulty and was treated with antibiotics and sent home with a prescription for antibiotics that she has not filled. Upon evaluation in the ED patient was found to be in [id number] respiratory distress with hypoxemia A chest x-ray showed an infiltrate She was subsequently admitted under hospitalist service to [facility] for further care and evaluation." I inherited her care 10/29 and she still complained of dry hacking cough leaving her breathless, persistent wheezing, easy fatigability with generalized weakness. Today she is c/o chest wall pain, sharp stabbing, radiating into her back, worse with inspiration or cough, better sitting forward and rapid shallow breathing, no other asctd symptoms. ROS: She denies chest pain, fever, chills, nausea, vomiting, diarrhea, otherwise per HPI plus a total of 10 systems reviewed, pertinent positives and negatives noted above, remaining systems negative. Physical Exam Vital Signs: Temp Pulse Resp BP Pulse Ox 97.8 F 102 H 22 H 178/80 H 98 10/30/16 07:06 10/30/16 08:40 10/30/16 08:40 10/30/16 07:06 10/30/16 08:40 Intake & Output 10/29/16 10/30/16 10/31/16 06:59 06:59 06:59 Intake Total 2375 5 Balance 2375 5 EXAM GENERAL: NAD; well developed, thin; alert and oriented to person, place, time, situation HEENT: normocephalic, atraumatic; no conjunctival injection, no scleral icterus ; oral mucosa moist; supplemental O2 at 4 L/m RESPIRATORY: Intercostal accessory muscle use, mild increased WOB, poor air entry bilaterally; bilateral improved rhonchi; bibasilar inspiratory crackles; chest wall tender to palpation CARDIO: no JVD; RRR; no systolic murmur; sinus tachycardia GI: soft; nondistended; normal bowel sounds; no rebound, rigidity, guarding; nontender VASCULAR: no pallor; 2+ radial pulse, normal capillary refill EXTREMITIES: no calf tender; no palpable cords in calf; no clubbing, cyanosis , pedal edema PSYCH: normal affect, normal mood, calm, cooperative SKIN: warm; moist; no petechiae; no telengectasias; no jaundice; no rash 49.8 kg 46.4 kg Results Laboratory Results: 10/29/16 03:57 10/29/16 03:57 Assessment & Plan - Diagnosis (1) Acute bacterial bronchitis Is this a current diagnosis for this admission?: YesPlan: Minimal improvement and not back to baseline. Continue empiric antibiotics, high-dose systemic steroids, supplemental O2, incentive spirometer and flutter valve. (2) Acute and chronic respiratory failure with hypoxia Is this a current diagnosis for this admission?: YesPlan: Mildly improved, not back to baseline. Treat as noted above. (3) Tobacco dependence Is this a current diagnosis for this admission?: Yes (4) COPD with acute exacerbation Is this a current diagnosis for this admission?: YesPlan: Not back to baseline. Continue systemic treatment noted #1 (5) Do not resuscitate Is this a current diagnosis for this admission?: Yes (6) Chest wall pain Is this a current diagnosis for this admission?: YesPlan: Worse, mostly skeletal in nature. She has stated allergy to nonsteroidal anti- inflammatories already receiving high-dose systemic steroids with little improvement. Continue cough suppressant. Add low-dose narcotic analgesics to encourage deep inspiration and cough. - Time Time Spent with patient: 15-24 minutes Medications reviewed and adjusted accordingly: Yes Anticipated discharge: Home Within: within 24 hours - Plan Summary Plan Summary: Anticipate discharge home in the next 24-48 hours.
[2016-10-30] MEDS: OXYCODONE HCL IR 5 MG TABLET PO PRN ×2 (13:52→22:08)
[2016-10-31] MEDS: METHYLPREDNISOLONE INJ 125 MG/2 ML SDV IV SCH ×3 (06:22→21:22)
[2016-10-31] MEDS: BUPROPION HCL 100 MG TABLET PO SCH ×3 (06:22→21:24)
[2016-10-31] MEDS: CEFEPIME 1 GM/D5W RTU 1 GM/50 ML RTUPB IV SCH ×2 (06:22→17:23)
[2016-10-31] MEDS: ENOXAPARIN SODIUM INJ 40 MG/0.4 ML DISP.SYRIN SUBCUT SCH (08:22)
[2016-10-31] MEDS: IPRATROPIUM/ALBUTEROL 0.5-2.5 MG/3 ML AMPUL NEB SCH ×3 (08:30→20:30)
[2016-10-31] MEDS: LEVOFLOXACIN 750 MG/D5W RTU 150 ML IV SCH (09:16)
[2016-10-31] MEDS: NIACIN 500 MG TABLET.SA PO SCH (09:17)
[2016-10-31] MEDS: SERTRALINE HCL 50 MG TABLET PO SCH ×4 (09:17→21:23)
[2016-10-31] MEDS: LANSOPRAZOLE 15 MG TAB.RAP.DR PO SCH (09:17)
[2016-10-31] MEDS: AMLODIPINE BESYLATE 5 MG TABLET PO SCH (09:17)
[2016-10-31] MEDS: LABETALOL HCL 200 MG TABLET PO SCH ×2 (09:18→21:23)
[2016-10-31] MEDS: FLUTICASONE/SALMETEROL DISKUS 250-50 MCG/DOSE IH SCH ×2 (09:18→21:23)
[2016-10-31] MEDS: FLUTICASONE NASAL SPRAY 50 MCG/SPRY 120 SPRAY/16 GM NASL SCH ×2 (09:18→21:22)
[2016-10-31] MEDS: PRIMIDONE 250 MG TABLET PO SCH ×2 (09:19→21:24)
--- NOTE | 2016-10-31 15:04 | PDOC PROGRESS REPORT ---
Subjective Progress Note for:: 10/31/16 Subjective:: Reason for follow-up visit: Acute on chronic hypoxic respiratory failure, acute bacterial bronchitis Hospital course: Per H&P "ANGELIQUE PETIT is a 66 year old female who presents to the emergency department complaining of a fever onset today. Patient also complains of cough, back pain secondary to cough, and shortness of breath. Patient states that she is on 2L of oxygen at home. Patient was seen here yesterday for breathing difficulty and was treated with antibiotics and sent home with a prescription for antibiotics that she has not filled. Upon evaluation in the ED patient was found to be in [id number] respiratory distress with hypoxemia A chest x-ray showed an infiltrate She was subsequently admitted under hospitalist service to [facility] for further care and evaluation." I inherited her care 10/29 and she still complained of dry hacking cough leaving her breathless, persistent wheezing, easy fatigability with generalized weakness. Also c/o chest wall pain, sharp stabbing, radiating into her back, worse with inspiration or cough, better sitting forward and rapid shallow breathing, no other asctd symptoms. ROS: Overall feels better. She states her chest wall and abdominal wall pain are improved with treatment; no fever, chills, nausea, vomiting, diarrhea, otherwise per HPI plus a total of 10 systems reviewed, pertinent positives and negatives noted above, remaining systems negative. Physical Exam Vital Signs: Temp Pulse Resp BP Pulse Ox 97.4 F 88 20 108/61 95 10/31/16 12:02 10/31/16 14:00 10/31/16 14:00 10/31/16 12:02 10/31/16 14:00 Intake & Output 10/30/16 10/31/16 11/01/16 06:59 06:59 06:59 Intake Total 5 1205 318 Balance 2064 1205 318 Weight 46.4 kg 48 kg EXAM GENERAL: NAD; well developed, thin; alert and oriented to person, place, time, situation HEENT: normocephalic, atraumatic; no conjunctival injection, no scleral icterus ; oral mucosa moist; supplemental O2 at 4 L/m RESPIRATORY: No accessory muscle use, no increased WOB, poor air entry bilaterally; no rhonchi; bibasilar inspiratory crackles persist; chest wall tender to palpation again CARDIO: no JVD; RRR; no systolic murmur; sinus tachycardia GI: soft; nondistended; normal bowel sounds; no rebound, rigidity, guarding; mild tender to abd wall muscles with palpation and deep inspiration VASCULAR: no pallor; 2+ radial pulse, normal capillary refill EXTREMITIES: no calf tender; no palpable cords in calf; no clubbing, cyanosis , pedal edema PSYCH: normal affect, normal mood, calm, cooperative SKIN: warm; moist; no petechiae; no telengectasias; no jaundice; no rash Assessment & Plan - Diagnosis (1) Acute bacterial bronchitis Is this a current diagnosis for this admission?: YesPlan: Minimal improvement and still not back to baseline. Continue empiric antibiotics, high-dose systemic steroids, supplemental O2, incentive spirometer and flutter valve. (2) Acute and chronic respiratory failure with hypoxia Is this a current diagnosis for this admission?: YesPlan: Mildly improved, not back to baseline. Treat as noted above. (3) Tobacco dependence Is this a current diagnosis for this admission?: Yes (4) COPD with acute exacerbation Is this a current diagnosis for this admission?: Yes (5) Do not resuscitate Is this a current diagnosis for this admission?: Yes (6) Chest wall pain Is this a current diagnosis for this admission?: YesPlan: Improved with analgesics, mostly skeletal in nature. She has stated allergy to nonsteroidal anti-inflammatories already receiving high-dose systemic steroids with little improvement. Continue cough suppressant. Continue low-dose narcotic analgesics to encourage deep inspiration and cough. - Time Time Spent with patient: 25-34 minutes Anticipated discharge: Home Within: within 24 hours - Plan Summary Plan Summary: She is finally starting to show some improvement raising possibility of discharge home tomorrow.
[2016-10-31] MEDS: HYDROCODONE BIT/HOMATROPINE 5-1.5 MG TABLET PO PRN ×2 (15:36→21:29)
[2016-10-31] MEDS: LACTOBACILLUS ACIDOPHILUS 250 MG TAB PO SCH (17:13)
[2016-11-01] MEDS: HYDROCODONE BIT/HOMATROPINE 5-1.5 MG TABLET PO PRN ×2 (06:22→21:48)
[2016-11-01] MEDS: METHYLPREDNISOLONE INJ 125 MG/2 ML SDV IV SCH ×3 (06:23→21:46)
[2016-11-01] MEDS: BUPROPION HCL 100 MG TABLET PO SCH ×3 (06:23→21:47)
[2016-11-01] MEDS: CEFEPIME 1 GM/D5W RTU 1 GM/50 ML RTUPB IV SCH ×2 (06:23→17:21)
[2016-11-01 07:56] LABS: HEMATOCRIT 29.2 % (36.0-47.0); HEMOGLOBIN 9.9 g/dL (12.0-15.5); HGB HCT DIFFERENCE 0.5; MEAN CORPUSCULAR HEMOGLOBIN 31.4 pg (27.0-33.4); MEAN CORPUSCULAR VOLUME 92 fl (80-97); RED BLOOD COUNT 3.16 10^6/uL (3.72-5.28); RED CELL DISTRIBUTION WIDTH 13.8 % (11.5-14.0); WHITE BLOOD COUNT 8.5 10^3/uL (4.0-10.5)
[2016-11-01] MEDS: ENOXAPARIN SODIUM INJ 40 MG/0.4 ML DISP.SYRIN SUBCUT SCH (08:04)
[2016-11-01] MEDS: IPRATROPIUM/ALBUTEROL 0.5-2.5 MG/3 ML AMPUL NEB SCH ×3 (08:20→20:12)
[2016-11-01] MEDS: LANSOPRAZOLE 15 MG TAB.RAP.DR PO SCH (09:28)
[2016-11-01] MEDS: LABETALOL HCL 200 MG TABLET PO SCH ×2 (09:29→21:47)
[2016-11-01] MEDS: PRIMIDONE 250 MG TABLET PO SCH ×2 (09:29→21:48)
[2016-11-01] MEDS: LACTOBACILLUS ACIDOPHILUS 250 MG TAB PO SCH ×2 (09:30→17:20)
[2016-11-01] MEDS: FLUTICASONE NASAL SPRAY 50 MCG/SPRY 120 SPRAY/16 GM NASL SCH ×2 (09:31→21:46)
[2016-11-01] MEDS: FLUTICASONE/SALMETEROL DISKUS 250-50 MCG/DOSE IH SCH ×2 (09:31→21:47)
[2016-11-01] MEDS: NIACIN 500 MG TABLET.SA PO SCH (09:31)
[2016-11-01] MEDS: SERTRALINE HCL 50 MG TABLET PO SCH ×4 (09:31→21:48)
[2016-11-01] MEDS: AMLODIPINE BESYLATE 5 MG TABLET PO SCH (09:31)
[2016-11-01] MEDS: LEVOFLOXACIN 750 MG/D5W RTU 150 ML IV SCH (09:32)
--- NOTE | 2016-11-01 15:19 | PDOC PROGRESS REPORT ---
Subjective Progress Note for:: 11/01/16 Subjective:: Reason for follow-up visit: Acute on chronic hypoxic respiratory failure, acute bacterial bronchitis Hospital course: Per H&P "ANGELIQUE PETIT is a 66 year old female who presents to the emergency department complaining of a fever onset today. Patient also complains of cough, back pain secondary to cough, and shortness of breath. Patient states that she is on 2L of oxygen at home. Patient was seen here yesterday for breathing difficulty and was treated with antibiotics and sent home with a prescription for antibiotics that she has not filled. Upon evaluation in the ED patient was found to be in [id number] respiratory distress with hypoxemia A chest x-ray showed an infiltrate She was subsequently admitted under hospitalist service to [facility] for further care and evaluation." I inherited her care 10/29 and she still complained of dry hacking cough leaving her breathless, persistent wheezing, easy fatigability with generalized weakness. Also c/o chest wall pain, sharp stabbing, radiating into her back, worse with inspiration or cough, better sitting forward and rapid shallow breathing, no other asctd symptoms. chest wall pain markedly improved. ROS: Overall feels better. She reports no fever, chills, nausea, vomiting, diarrhea, otherwise per HPI plus a total of 10 systems reviewed, pertinent positives and negatives noted above, remaining systems negative. Physical Exam Vital Signs: Temp Pulse Resp BP Pulse Ox 98.4 F 84 19 132/62 H 96 11/01/16 12:00 11/01/16 14:00 11/01/16 13:38 11/01/16 12:00 11/01/16 12:00 Intake & Output 10/31/16 11/01/16 11/02/16 06:59 06:59 06:59 Intake Total 1205 1502 563 Balance 1205 1502 563 Weight 48 kg 47.5 kg EXAM GENERAL: NAD; well developed, thin; alert and oriented to person, place, time, situation HEENT: normocephalic, atraumatic; no conjunctival injection, no scleral icterus ; oral mucosa moist; supplemental O2 at 4 L/m RESPIRATORY: No accessory muscle use, no increased WOB, poor air entry bilaterally; no rhonchi; bibasilar inspiratory crackles persist; chest wall tender to palpation again but less so CARDIO: no JVD; RRR; no systolic murmur; sinus tachycardia GI: soft; nondistended; normal bowel sounds; no rebound, rigidity, guarding; mild tender to abd wall muscles with palpation and deep inspiration VASCULAR: no pallor; 2+ radial pulse, normal capillary refill EXTREMITIES: no calf tender; no palpable cords in calf; no clubbing, cyanosis , pedal edema PSYCH: normal affect, normal mood, calm, cooperative SKIN: warm; moist; no petechiae; no telengectasias; no jaundice; no rash Results Laboratory Results: 11/01/16 07:48 10/29/16 03:57 11/01/16 07:48 WBC 8.5 RBC 3.16 L Hgb 9.9 L Hct 29.2 L MCV 92 MCH 31.4 MCHC 34.0 RDW 13.8 Plt Count 313 10/30/16 02:00 Sputum Gram Stain - Final 10/30/16 02:00 Sputum Sputum Culture - Final C.albicans/C.dubliniensis Reduced Normal [place] Assessment & Plan - Diagnosis (1) Acute bacterial bronchitis Is this a current diagnosis for this admission?: YesPlan: slow steady mprovement and still not back to baseline. Continue empiric antibiotics, high-dose systemic steroids, supplemental O2, incentive spirometer and flutter valve. (2) Acute and chronic respiratory failure with hypoxia Is this a current diagnosis for this admission?: Yes (3) Tobacco dependence Is this a current diagnosis for this admission?: Yes (4) COPD with acute exacerbation Is this a current diagnosis for this admission?: Yes (5) Do not resuscitate Is this a current diagnosis for this admission?: Yes (6) Chest wall pain Is this a current diagnosis for this admission?: Yes - Time Time Spent with patient: 15-24 minutes Medications reviewed and adjusted accordingly: Yes Anticipated discharge: Home Within: within 24 hours - Anticipate discharge in the morning
[2016-11-02] MEDS: CEFEPIME 1 GM/D5W RTU 1 GM/50 ML RTUPB IV SCH (06:39)
[2016-11-02] MEDS: METHYLPREDNISOLONE INJ 125 MG/2 ML SDV IV SCH ×2 (06:39→13:08)
[2016-11-02] MEDS: BUPROPION HCL 100 MG TABLET PO SCH ×2 (06:41→13:07)
[2016-11-02] MEDS: ENOXAPARIN SODIUM INJ 40 MG/0.4 ML DISP.SYRIN SUBCUT SCH (07:55)
[2016-11-02] MEDS: IPRATROPIUM/ALBUTEROL 0.5-2.5 MG/3 ML AMPUL NEB SCH ×2 (08:18→14:36)
[2016-11-02] MEDS: FLUTICASONE/SALMETEROL DISKUS 250-50 MCG/DOSE IH SCH (09:16)
[2016-11-02] MEDS: FLUTICASONE NASAL SPRAY 50 MCG/SPRY 120 SPRAY/16 GM NASL SCH (09:16)
[2016-11-02] MEDS: PRIMIDONE 250 MG TABLET PO SCH (09:16)
[2016-11-02] MEDS: AMLODIPINE BESYLATE 5 MG TABLET PO SCH (09:17)
[2016-11-02] MEDS: LANSOPRAZOLE 15 MG TAB.RAP.DR PO SCH (09:18)
[2016-11-02] MEDS: NIACIN 500 MG TABLET.SA PO SCH (09:19)
[2016-11-02] MEDS: LACTOBACILLUS ACIDOPHILUS 250 MG TAB PO SCH (09:20)
[2016-11-02] MEDS: LABETALOL HCL 200 MG TABLET PO SCH (09:20)
[2016-11-02] MEDS: LEVOFLOXACIN 750 MG/D5W RTU 150 ML IV SCH (09:20)
[2016-11-02] MEDS: SERTRALINE HCL 50 MG TABLET PO SCH ×2 (09:20→13:08)
[2016-11-02 12:57] VITALS: BP 134/60
--- NOTE | 2016-11-02 16:06 | PDOC DISCHARGE SUMMARY ---
General - Admit/Disc Date/PCP Admission Date/Primary Care Provider: 10/28/16 16:36 Discharge Date: 11/02/16 - Discharge Diagnosis (1) Acute bacterial bronchitis Is this a current diagnosis for this admission?: YesSummary: she has finally improved back to baseline and stable for d/c home on continued abx and steroids; already has home O2 and nebs available. feels ready for d/c and expresses no concerns about going home at this time. (2) Acute and chronic respiratory failure with hypoxia Is this a current diagnosis for this admission?: Yes (3) Tobacco dependence Is this a current diagnosis for this admission?: Yes (4) COPD with acute exacerbation Is this a current diagnosis for this admission?: Yes (5) Do not resuscitate Is this a current diagnosis for this admission?: Yes (6) Chest wall pain Is this a current diagnosis for this admission?: YesSummary: resolved; continue cough medicine colleen ortiz. - Additional Information Resuscitation Status: Full Code Discharge Diet: As Tolerated Discharge Activity: Activity As Tolerated, Balance Activity w/Rest, Slowly Increase Activity Home Medications: Albuterol Sulfate [Proair HFA Inhalation Aerosol 8.5 gm MDI] 2 puff IH Q4 PRN Amlodipine Besylate [Norvasc 5 mg Tablet] 5 mg PO DAILY 10/28/16 Bupropion HCl [Wellbutrin Sr 150 mg Tablet] 150 mg PO Q12 10/28/16 Fluticasone/Salmeterol [Advair 250-50 Diskus 14 Dose/Diskus] 1 inh IH Q12 Hydroxyzine Pamoate [Vistaril 25 mg Capsule] 25 mg PO Q8 10/28/16 Labetalol HCl [Trandate] 300 mg PO Q12 10/28/16 Niacin (Inositol Niacinate) [Niacin 500 mg Capsule] 500 mg PO DAILY 10/28/16 Omeprazole 20 mg PO DAILY 10/28/16 Potassium Gluconate 595 mg PO DAILY 10/28/16 Primidone [Mysoline 250 mg Tablet] 250 mg PO Q12 10/28/16 Sertraline HCl [Zoloft] 200 mg PO Q12 10/28/16 Tiotropium [place] [Spiriva Handihaler 5 Cap/Kit (18 Mcg/Cap)] 1 cap IH DAILY Hydrocodone Bit/Homatropine [Hycodan 5-1.5 mg Tablet] 1 tab PO Q4HP PRN #30 tablet 11/02/16 Levofloxacin [Levaquin 750 mg Tablet] 750 mg PO DAILY #7 tablet 11/02/16 Prednisone [Deltasone 20 mg Tablet] 20 mg PO BID #14 tablet 11/02/16 History of Present Illness Patient complains of: fever, cough with phlegm History of Present Illness: ANGELIQUE PETIT is a 66 year old female who presents to the emergency department complaining of a fever onset today. Patient also complains of cough, back pain secondary to cough, and shortness of breath. Patient states that she is on 2L of oxygen at home. Hospital Course Hospital Course: Patient was seen here yesterday for breathing difficulty and was treated with antibiotics and sent home with a prescription for antibiotics that she has not filled. Upon evaluation in the ED patient was found to be in [id number] respiratory distress with hypoxemia A chest x-ray showed an infiltrate She was subsequently admitted under hospitalist service to [facility] for further care and evaluation." I inherited her care 10/29 and she still complained of dry hacking cough leaving her breathless, persistent wheezing, easy fatigability with generalized weakness. Also c/o chest wall pain, sharp stabbing, radiating into her back, worse with inspiration or cough, better sitting forward and rapid shallow breathing, no other asctd symptoms. chest wall pain markedly improved. overall her condition improved back to baseline with usual regimen, she is hemodynamically stable for d/c at this time. she expresses no concerns about going home at this time. Physical Exam Vital Signs: Temp Pulse Resp BP Pulse Ox 97.9 F 94 22 H 158/62 H 97 11/02/16 12:47 11/02/16 12:47 11/02/16 12:47 11/02/16 12:47 11/02/16 12:47 Intake & Output 11/01/16 11/02/16 11/03/16 06:59 06:59 06:59 Intake Total 1502 1548 356 Balance 1502 1548 356 Weight 47.5 kg 47.8 kg EXAM GENERAL: NAD; well developed, thin; alert and oriented to person, place, time, situation HEENT: normocephalic, atraumatic; no conjunctival injection, no scleral icterus ; oral mucosa moist; supplemental O2 at 4 L/m RESPIRATORY: No accessory muscle use, no increased WOB, poor air entry bilaterally; no rhonchi; no wheezes rales, just coarse BSs bilat. CW tender much improved. CARDIO: no JVD; RRR; no systolic murmur; sinus tachycardia GI: soft; nondistended; normal bowel sounds; no rebound, rigidity, guarding; nontender to palpation and deep inspiration VASCULAR: no pallor; 2+ radial pulse, normal capillary refill EXTREMITIES: no calf tender; no palpable cords in calf; no clubbing, cyanosis , pedal edema PSYCH: normal affect, normal mood, calm, cooperative SKIN: warm; moist; no petechiae; no telengectasias; no jaundice; no rash Results Laboratory Results: 11/01/16 07:48 10/29/16 03:57 Impressions: Chest X-Ray 10/28/16 00:00 IMPRESSION: Minimal infiltrate right lung base medially. Increasing density laterally of the left chest as noted above. Qualifiers PATEINT BEING DISCHARGED WITH ANY OF THE FOLLOWING DIAGNOSIS?: No VTE patient discharged on overlapping Therapy?: No Reason(s) for not prescribing Overlap Therapy:: Not indicated Plan Discharge Plan: f/u PCP in one week; return to the ED for worsening condition. finish course of abx and steroids at home.
== END 2016-11-02 14:55 | disposition home or self-care (01) | DRG 190 ==
LOC: ER 14:13 → EH 16:36 → UNDOADMIN 16:52 → EH 16:52 → 3W 18:21 → EH 18:21
PROVIDERS: ADMIT Emergency Medicine; ATTEND Emergency Medicine
DX: J44.0 Chronic obstructive pulmonary disease with (acute) lower respiratory infection (principal); J96.21 Acute and chronic respiratory failure with hypoxia; Z66 Do not resuscitate; J20.8 Acute bronchitis due to other specified organisms; J44.1 Chronic obstructive pulmonary disease with (acute) exacerbation; E78.5 Hyperlipidemia, unspecified; I10 Essential (primary) hypertension; F32.9 Major depressive disorder, single episode, unspecified; F17.210 Nicotine dependence, cigarettes, uncomplicated; Z87.01 Personal history of pneumonia (recurrent); Z79.51 Long term (current) use of inhaled steroids; Z79.899 Other long term (current) drug therapy
CPT/HCPCS: 36415; 71010; 80048; 80053; 80061; 81001; 82803; 82962; 83605; 84443; 85025; 85027; 85610; 87040; 87070; 87086; 87205; 87804; 93005; 93010; 94640; 94799; 96365; 96367; 96375; 99285; 99291; J0692; J0696; J1650; J1956; J2930; J3370; J3490; J7030; J7620

== ENCOUNTER 2018-03-28 19:51 | Inpatient (IN) | payer MEDICARE, MEDICAID ==
[2018-03-28] MEDS ORDERED: RINGERS SOLUTION,LACTATED 1,000 ML IV ONE (20:21)
[2018-03-28] MEDS ORDERED: NICOTINE 14 MG/24 HR PATCH.TD24 TD ONE (20:21)
--- NOTE | 2018-03-28 20:24 | ER Document Report ---
ED General - General Chief Complaint: General Weakness Stated Complaint: EXTREMITY WEAKNESS Time Seen by Provider: 03/28/18 19:55 Notes: Patient is a 67-year-old female with a past medical history of COPD, hypertension, active smoker who presents with complaints of progressively worsening general weakness, weight loss, and lack of appetite. Patient reports that the past week she has not had air conditioning in her home. She states that over that period of time she has been hardly unable to get up and walk due to the degree of her general weakness. She states that nothing seems to improve or worsen her symptoms. She denies similar symptoms in the past. The patient reports that she has continued to lose weight at a rapid pace and estimates that she has lost approximately 10 pounds within the past 2 months. She has not seen her general doctor regarding today's concerns. She denies any fever, cough, dysuria, abdominal pain or chest pain. No recent trauma. She denies syncope. TRAVEL OUTSIDE OF THE [place] IN LAST 30 DAYS: No - Related Data Allergies/Adverse Reactions: ibuprofen [From Motrin] Allergy (Verified 08/22/15 17:44) SWELL Tetanus Vaccines and Toxoid [Tetanus] Allergy (Verified 08/22/15 17:44) Nausea Past Medical History - General Information source: Patient - Social History Smoking Status: Current Every Day Smoker Chew tobacco use (# tins/day): No Frequency of alcohol use: None Drug Abuse: None Lives with: Family Family History: Reviewed & Not Pertinent, Malignancy - Several members in the family mother father brother had cancer. denies: None - Frustrating that the appropriate be off from Patient has suicidal ideation: No Patient has homicidal ideation: No - Past Medical History Cardiac Medical History: Reports: Hx Hypercholesterolemia, Hx Hypertension Denies: Hx Coronary Artery Disease, Hx Heart Attack Pulmonary Medical History: Reports: Hx Asthma, Hx Bronchitis, Hx COPD, Hx Pneumonia Denies: Hx Tuberculosis Neurological Medical History: Denies: Hx Cerebrovascular Accident, Hx Seizures Renal/ Medical History: Denies: Hx Peritoneal Dialysis GI Medical History: Reports: Hx Gastroesophageal Reflux Disease. Denies: Hx Hepatitis, Hx Hiatal Hernia, Hx Ulcer Musculoskeletal Medical History: Denies Hx Arthritis Psychiatric Medical History: Reports: Hx Depression Infectious Medical History: Denies: Hx Hepatitis Past Surgical History: Reports: Hx Orthopedic Surgery - Fourth left rib resection for tumor., Hx Tubal Ligation. Denies: Hx Hysterectomy, Hx Mastectomy , Hx Open Heart Surgery, Hx Pacemaker - Immunizations Hx Diphtheria, Pertussis, Tetanus Vaccination: Yes Hx Pneumococcal Vaccination: 07/28/10 Review of Systems - Review of Systems Notes: Constitutional: Negative for fever. Positive for general fatigue HENT: Negative for sore throat. Eyes: Negative for visual changes. Cardiovascular: Negative for chest pain. Respiratory: Negative for shortness of breath. Gastrointestinal: Negative for abdominal pain, vomiting or diarrhea. Genitourinary: Negative for dysuria. Musculoskeletal: Negative for back pain. Skin: Negative for rash. Neurological: Negative for headaches, weakness or numbness. 10 point ROS negative except as marked above and in HPI. Physical Exam - Vital signs Vitals: BP Pulse Ox 107/63 95 03/28/18 19:57 03/28/18 19:57 Interpretation: Normal Notes: PHYSICAL EXAMINATION: GENERAL: Frail, emaciated in appearance. No acute distress. HEAD: Atraumatic, normocephalic. EYES: Pupils equal round and reactive to light, extraocular movements intact, sclera anicteric, conjunctiva are normal. ENT: nares patent, oropharynx clear without exudates. Dry mucous membranes. NECK: Normal range of motion, supple without lymphadenopathy LUNGS: Breath sounds clear to auscultation bilaterally and equal. No wheezes rales or rhonchi. HEART: Regular rate and rhythm without murmurs ABDOMEN: Soft, nontender, normoactive bowel sounds. No guarding, no rebound. No masses appreciated. EXTREMITIES: no pitting or edema. No cyanosis. NEUROLOGICAL: No focal neurological deficits. Moves all extremities spontaneously and on command. PSYCH: Normal mood, normal affect. SKIN: Warm, Dry, normal turgor, no rashes or lesions noted. Course - Re-evaluation Re-evalutation: 03/28/18 20:22 Presentation of a cachectic, chronically ill-appearing female in no acute distress. She is complaining of generalized weakness worsening over the past 1 month. The patient appears to have recently had a significant weight loss, appears like she cannot weigh more than 40 kg. She has a history of a mass on her left ribs in the remote past but has not had recent follow-up for this underlying history of malignancy. Patient continues to smoke and I am extremity concerned about the possibility of new or recurrent malignancy as the etiology for her rapid weight loss and general fatigue. The patient does not appear in any overt respiratory distress, I do not suspect a COPD exacerbation, acute PE or pneumonia. She is saturating 95% on room air normally uses 2 L by nasal cannula which I have restarted here in the department. She denies his symptoms to suggest ACS. Alternative considerations would include a occult infection such as urinary tract infection. Will obtain labs, CT the chest and reassess - Vital Signs Vital signs: Temp Pulse Resp BP Pulse Ox 98.5 F 24 H 108/50 L 100 03/28/18 20:19 03/28/18 23:01 03/28/18 23:01 03/28/18 23:01 - Laboratory Result Diagrams: 03/28/18 20:06 03/28/18 20:06 Laboratory results interpreted by me: 03/28/18 03/28/18 03/28/18 20:06 20:06 22:22 RBC 2.67 L Hgb 8.1 L Hct 24.0 L RDW 15.1 H Sodium 132.4 L Potassium 2.7 L* BUN 4 L Calcium 7.8 L Total Bilirubin 0.1 L Total Protein 6.1 L Albumin 3.3 L Prealbumin 10.6 L Urine Blood SMALL H Ur Leukocyte Esterase SMALL H - EKG Interpretation by Me Additional EKG results interpreted by me: 03/29/18 02:14 Sinus rhythm. Rate 71. No ST elevations or depressions. QTC is 440. Discharge - Discharge Clinical Impression: Hypokalemia, Weight loss Malnutrition Qualifiers: Malnutrition type: unspecified type Qualified Code(s): E46 - Unspecified protein-calorie malnutrition Condition: Fair Disposition: ADMITTED INPATIENT Admitting Provider: Hospitalist Unit Admitted: Medical Floor Referrals: POLLY MCKENZIE PA-C [Primary Care Provider] - Follow up as needed
[2018-03-28 20:38] LABS: ABSOLUTE EOSINOPHILS # (AUTO) 0.2 10^3/uL (0.0-0.6); ABSOLUTE MONOCYTES (AUTO) 0.9 10^3/uL (0.1-1.4); ABSOLUTE NEUT (AUTO) 3.9 10^3/uL (1.7-8.2); BASOPHILS % (AUTO) 0.5 % (0-2); EOSINOPHILS % (AUTO) 2.2 % (0-6); HEMOGLOBIN 8.1 g/dL (12.0-15.5); LYMPHOCYTES % (AUTO) 37.3 % (13-45); MEAN CORPUSCULAR HEMOGLOBIN 30.2 pg (27.0-33.4); MEAN CORPUSCULAR HGB CONC 33.6 g/dL (32.0-36.0); MEAN CORPUSCULAR VOLUME 90 fl (80-97); MONOCYTES % (AUTO) 10.9 % (3-13); PLATELET COUNT 342 10^3/uL (150-450); RED BLOOD COUNT 2.67 10^6/uL (3.72-5.28); RED CELL DISTRIBUTION WIDTH 15.1 % (11.5-14.0); SEGMENTED NEUTROPHILS % (AUTO) 49.1 % (42-78); TOTAL CELLS COUNTED % (AUTO) 100 %
[2018-03-28 20:46] LABS: ALANINE AMINOTRANSFERASE 17 U/L (9-52); ALBUMIN 3.3 g/dL (3.5-5.0); ALKALINE PHOSPHATASE 67 U/L (38-126); ANION GAP 10 (5-19); ASPARTATE AMINO TRANSFERASE 16 U/L (14-36); BLOOD UREA NITROGEN 4 mg/dL (7-20); CALCIUM 7.8 mg/dL (8.4-10.2); CARBON DIOXIDE 24 mmol/L (22-30); CHLORIDE 98 mmol/L (98-107); CREATINE KINASE 64 U/L (30-135); GLUCOSE 85 mg/dL (75-110); LIPASE 52.4 U/L (23-300); SODIUM 132.4 mmol/L (137-145); TOTAL PROTEIN 6.1 g/dL (6.3-8.2)
[2018-03-28 20:50] LABS: BILIRUBIN,TOTAL 0.1 mg/dL (0.2-1.3)
[2018-03-28 20:53] LABS: PREALBUMIN 10.6 mg/dL (17.6-36.0)
[2018-03-28 21:17] LABS: BILIRUBIN,DIRECT 0.1 mg/dL (0.0-0.4)
[2018-03-28 21:20] LABS: POTASSIUM 2.7 mmol/L (3.6-5.0)
[2018-03-28] MEDS ORDERED: POTASSIUM CHLORIDE 20 MEQ/15 ML UDCUP PO ONE (21:34)
[2018-03-28] MEDS ORDERED: POTASSI CL 20 MEQ/50 ML RIDER 20 MEQ/50 ML RTUPB IV ONE (21:34)
--- NOTE | 2018-03-28 21:54 | EKG REPORT ---
SEVERITY:- NORMAL ECG - SINUS RHYTHM : Confirmed by: Evan Martins MD 28-Mar-2018 21:53:12
[2018-03-28] MEDS: MAGNESIUM SULFATE/D5W 1 GM/100 ML RTUPB IV SCH ×2 (22:03→22:19)
[2018-03-28 22:58] LABS: APPEARANCE,URINE SLIGHTLY-CLOUDY; BILIRUBIN,URINE NEGATIVE (NEGATIVE); COLOR,URINE YELLOW; GLUCOSE, URINE NEGATIVE (NEGATIVE); KETONES,URINE NEGATIVE (NEGATIVE); LEUKOCYTE ESTERASE,URINE SMALL (NEGATIVE); NITRITE,URINE NEGATIVE (NEGATIVE); PROTEIN,URINE NEGATIVE (NEGATIVE); URINE SPECIFIC GRAVITY 1.009; UROBILINOGEN,URINE NEGATIVE mg/dL (<2.0)
--- NOTE | 2018-03-28 23:00 | RADIOLOGY REPORT (SQ) ---
CT CHEST WITH IV CONTRAST HISTORY: Chest pain. Evaluate for recurrent malignancy. COMPARISON: 03/22/2016 TECHNIQUE: CT scan of the chest. This exam was performed according to our departmental dose-optimization program, which includes automated exposure control, adjustment of the mA and/or kV according to patient size and/or use of iterative reconstruction technique. FINDINGS: The thyroid gland is unremarkable. No mediastinal, hilar, or axillary adenopathy is seen. There is no thoracic aortic dissection or aneurysm. No pericardial effusion. No consolidation, pleural effusion, or pneumothorax is identified. Centrilobular emphysema in the upper lobes. 5 mm calcified granuloma in the right upper lobe. Left anterior chest wall defect with scarring in the lingula, presumably postsurgical changes. The osseous structures are intact. The visualized upper abdomen is unremarkable. IMPRESSION: No acute thoracic pathology. Chronic post surgical changes in the left hemithorax. No evidence of recurrent disease.
[2018-03-28] MEDS ORDERED: NICOTINE 14 MG/24 HR PATCH.TD24 ONE (23:13)
[2018-03-29] MEDS ORDERED: MAG HYDROX/AL HYDROX/SIMETH SUSP 30 ML UDCUP PO PRN (00:31)
[2018-03-29] MEDS ORDERED: IPRATROPIUM/ALBUTEROL 0.5-2.5 MG/3 ML AMPUL NEB PRN (00:31)
[2018-03-29] MEDS ORDERED: ACETAMINOPHEN 325 MG TABLET PO PRN (00:31)
[2018-03-29] MEDS ORDERED: NORMAL SALINE 1000 ML 1,000 ML IV SCH (00:45)
[2018-03-29 00:53] LABS: PHOSPHORUS 2.9 mg/dL (2.5-4.5)
[2018-03-29 01:28] LABS: ABSOLUTE RETICS # 0.044 10^6/uL (0.028-0.122); RETICULOCYTE COUNT (AUTO) 1.66 % (0.66-2.85)
[2018-03-29 01:57] LABS: FERRITIN 6.89 ng/mL (11.1-264.0)
[2018-03-29 02:27] LABS: FOLATE 8.83 ng/mL (>2.76)
[2018-03-29 02:29] LABS: IRON(TIBC) < 10.1 ug/dL (37-170)
[2018-03-29 06:21] LABS: ANION GAP 10 (5-19); BLOOD UREA NITROGEN 4 mg/dL (7-20); CALCIUM 8.7 mg/dL (8.4-10.2); CARBON DIOXIDE 25 mmol/L (22-30); CHLORIDE 103 mmol/L (98-107); GLUCOSE 120 mg/dL (75-110); POTASSIUM 4.1 mmol/L (3.6-5.0); SODIUM 138.3 mmol/L (137-145)
--- NOTE | 2018-03-29 06:23 | PDOC H&P ---
History of Present Illness Admission Date/PCP: 03/29/18 02:19 POLLY MCKENZIE PA-C Patient complains of: Weakness History of Present Illness: ANGELIQUE PETIT is a 67 year old female with a past medical history of COPD, chronic bronchitis, hypertension, tobacco dependence, weight loss and anorexia. She presents with 1 week of severe debility and unable to ambulate residing in a home without air conditioning. She admits to shortness of breath with exertion and a nonproductive cough. In the emergency room she is found to have tachypnea, profound weakness, malnutrition, anemia, hypokalemia and bedbug infestation. Patient is unclear of her medications. Past Medical History Cardiac Medical History: Reports: Hyperlipidema, Hypertension Denies: Coronary Artery Disease, Myocardial Infarction Pulmonary Medical History: Reports: Asthma, Bronchitis, Chronic Obstructive Pulmonary Disease (COPD), Pneumonia Denies: Tuberculosis Neurological Medical History: Denies: Seizures GI Medical History: Reports: Gastroesophageal Reflux Disease Denies: Hepatitis, Hiatal Hernia Musculoskeltal Medical History: Reports: Arthritis Psychiatric Medical History: Reports: Depression, Tobacco Dependency Hematology: Denies: Anemia, Sickle Cell Disease Past Surgical History Past Surgical History: Reports: Orthopedic Surgery - Fourth left rib resection for tumor., Tubal Ligation Denies: Amputation, Hysterectomy, Mastectomy, Pacemaker Social History Information Source: Patient, [facility] Records Lives with: Family Smoking Status: Current Every Day Smoker Cigarettes Packs Per Day: 1 Number of Years Smokin Last Time Smoked: 03/28/2018 Frequency of Alcohol Use: Occasional Hx Recreational Drug Use: No - denies Drugs: None Hx Prescription Drug Abuse: No - Advance Directive Resuscitation Status: Full Code Family History Family History: Arthritis, COPD, Malignancy - Several members in the family mother father brother had cancer. denies: None - Frustrating that the appropriate be off from Parental Family History Reviewed: Yes Children Family History Reviewed: Yes Sibling(s) Family History Reviewed.: Yes Medication/Allergy Home Medications: Albuterol Sulfate [Proair HFA Inhalation Aerosol 8.5 gm MDI] 2 puff IH Q4 PRN Amlodipine Besylate [Norvasc 5 mg Tablet] 5 mg PO DAILY 10/28/16 Bupropion HCl [Wellbutrin Sr 150 mg Tablet] 150 mg PO Q12 10/28/16 Fluticasone/Salmeterol [Advair 250-50 Diskus 14 Dose/Diskus] 1 inh IH Q12 Hydroxyzine Pamoate [Vistaril 25 mg Capsule] 25 mg PO Q8 10/28/16 Labetalol HCl [Trandate] 300 mg PO Q12 10/28/16 Niacin (Inositol Niacinate) [Niacin 500 mg Capsule] 500 mg PO DAILY 10/28/16 Omeprazole 20 mg PO DAILY 10/28/16 Potassium Gluconate 595 mg PO DAILY 10/28/16 Primidone [Mysoline 250 mg Tablet] 250 mg PO Q12 10/28/16 Sertraline HCl [Zoloft] 200 mg PO Q12 10/28/16 Tiotropium [place] [Spiriva Handihaler 5 Cap/Kit (18 Mcg/Cap)] 1 cap IH DAILY Hydrocodone Bit/Homatropine [Hycodan 5-1.5 mg Tablet] 1 tab PO Q4HP PRN #30 tablet 11/02/16 Levofloxacin [Levaquin 750 mg Tablet] 750 mg PO DAILY #7 tablet 11/02/16 Prednisone [Deltasone 20 mg Tablet] 20 mg PO BID #14 tablet 11/02/16 Allergies/Adverse Reactions: ibuprofen [From Motrin] Allergy (Verified 08/22/15 17:44) SWELL Tetanus Vaccines and Toxoid [Tetanus] Allergy (Verified 08/22/15 17:44) Nausea Review of Systems Constitutional: PRESENT: as per HPI, anorexia, fatigue, weakness, weight loss. ABSENT: fever(s), headache(s), night sweats Eyes: ABSENT: visual disturbances Ears: ABSENT: hearing changes Cardiovascular: PRESENT: as per HPI, dyspnea on exertion. ABSENT: edema, orthropnea, palpitations Respiratory: PRESENT: as per HPI, cough, dyspnea. ABSENT: sputum Gastrointestinal: ABSENT: abdominal pain, constipation, diarrhea, hematemesis, hematochezia, nausea, vomiting Genitourinary: ABSENT: dysuria, hematuria Musculoskeletal: PRESENT: muscle weakness. ABSENT: joint swelling Integumentary: PRESENT: lesions. ABSENT: rash, wounds Psychiatric: ABSENT: anxiety, depression, homidical ideation, suicidal ideation Endocrine: ABSENT: cold intolerance, heat intolerance, polydipsia, polyuria Hematologic/Lymphatic: ABSENT: easy bleeding, easy bruising Physical Exam Vital Signs: Temp Pulse Resp BP Pulse Ox 97.7 F 78 18 145/62 H 95 03/29/18 04:00 03/29/18 04:00 03/29/18 04:00 03/29/18 04:00 03/29/18 04:00 General appearance: PRESENT: cooperative, disheveled, mild distress, thin Head exam: PRESENT: atraumatic Eye exam: PRESENT: conjunctiva pink, EOMI, PERRLA. ABSENT: scleral icterus Ear exam: PRESENT: normal external ear exam Mouth exam: PRESENT: dry mucosa, tongue midline Neck exam: ABSENT: carotid bruit, JVD, lymphadenopathy, thyromegaly Respiratory exam: PRESENT: accessory muscle use, clear to auscultation leo, crackles, prolonged expiratory phas, symmetrical, tachypnea. ABSENT: rales, rhonchi, wheezes Cardiovascular exam: PRESENT: RRR. ABSENT: diastolic murmur, rubs, systolic murmur Pulses: PRESENT: normal dorsalis pedis pul Vascular exam: PRESENT: normal capillary refill GI/Abdominal exam: PRESENT: normal bowel sounds, soft. ABSENT: distended, guarding, mass, organolmegaly, rebound, tenderness Rectal exam: PRESENT: deferred Extremities exam: PRESENT: full ROM. ABSENT: calf tenderness, clubbing, pedal edema Neurological exam: PRESENT: alert, awake, oriented to person, oriented to place , oriented to time, oriented to situation, CN II-XII grossly intact. ABSENT: motor sensory deficit Psychiatric exam: PRESENT: appropriate affect, normal mood. ABSENT: homicidal ideation, suicidal ideation Skin exam: PRESENT: dry, erythema - Scattered areas of breakfast lunch and dinner bedbug lesions, intact, warm. ABSENT: cyanosis, rash Results Impressions: Chest CT 03/28/18 20:20 IMPRESSION: No acute thoracic pathology. Chronic post surgical changes in the left hemithorax. No evidence of recurrent disease. Assessment & Plan - Diagnosis (1) Anemia Is this a current diagnosis for this admission?: Yes Plan: Multifactorial, malnutrition, evaluate iron and B12. Repletion as needed (2) Bedbug bite with infection Is this a current diagnosis for this admission?: Yes Plan: Contact precautions, symptomatic management, discharge planning consult (3) Hypokalemia Is this a current diagnosis for this admission?: Yes Plan: Unclear cause, repletion, evaluate magnesium follow-up chemistry (4) Malnutrition Qualifiers: Malnutrition type: unspecified type Qualified Code(s): E46 - Unspecified protein-calorie malnutrition Is this a current diagnosis for this admission?: Yes Plan: Consult dietitian, planning consult, been a protein with meals (5) Weight loss Is this a current diagnosis for this admission?: Yes Plan: Likely secondary to advanced COPD complicated by malnutrition (6) Acute bacterial bronchitis Is this a current diagnosis for this admission?: Yes Plan: Doxycycline, flutter valve and supplemental oxygen (7) Tobacco abuse Is this a current diagnosis for this admission?: Yes Plan: Tobacco Dependence patient received tobacco cessation counseling and offered nicotine replacement options - Time Time Spent: 50 to 70 Minutes
[2018-03-29] MEDS ORDERED: IRON SUCROSE COMPLEX INJ/PF 100 MG/5 ML SDV IV ONE ×2 (06:30→07:09)
[2018-03-29] MEDS ORDERED: CYANOCOBALAMIN (VITAMIN B-12) INJ 1000 MCG/1 ML VIAL IM ONE (06:30)
[2018-03-29] MEDS: HEPARIN SOD (PORCINE) 5,000 UNIT/ML 1 ML SYRINGE SUBCUT SCH ×3 (06:35→22:13)
[2018-03-29] MEDS: BUPROPION HCL 100 MG TABLET PO SCH ×3 (06:35→22:19)
[2018-03-29] MEDS ORDERED: DOXYCYCLINE HYCLATE 100 MG TABLET PO ONE ×2 (07:00→07:11)
[2018-03-29] MEDS ORDERED: CYANOCOBALAMIN (VITAMIN B-12) INJ 1000 MCG/1 ML VIAL ONE (07:09)
[2018-03-29] MEDS: DOCUSATE SODIUM 100 MG CAPSULE PO SCH (09:01)
[2018-03-29] MEDS ORDERED: ALBUTEROL SULFATE 0.083% NEB 2.5 MG/3 ML AMPUL NEB PRN (11:05)
[2018-03-29] MEDS: BUSPIRONE HCL 10 MG TABLET PO SCH ×2 (13:42→22:12)
[2018-03-29] MEDS: PREDNISONE 20 MG TABLET PO SCH (13:44)
[2018-03-29] MEDS: IPRATROPIUM/ALBUTEROL 0.5-2.5 MG/3 ML AMPUL NEB SCH ×2 (14:28→20:01)
[2018-03-29 15:25] LABS: HEMATOCRIT 25.3 % (36.0-47.0); HEMOGLOBIN 8.3 g/dL (12.0-15.5); MEAN CORPUSCULAR HEMOGLOBIN 29.9 pg (27.0-33.4); MEAN CORPUSCULAR VOLUME 91 fl (80-97); PLATELET COUNT 348 10^3/uL (150-450); RED BLOOD COUNT 2.79 10^6/uL (3.72-5.28); RED CELL DISTRIBUTION WIDTH 15.6 % (11.5-14.0); WHITE BLOOD COUNT 5.8 10^3/uL (4.0-10.5)
[2018-03-29 15:53] LABS: ANION GAP 11 (5-19); BLOOD UREA NITROGEN 6 mg/dL (7-20); CALCIUM 7.9 mg/dL (8.4-10.2); CARBON DIOXIDE 21 mmol/L (22-30); CHLORIDE 107 mmol/L (98-107); GLUCOSE 152 mg/dL (75-110); SODIUM 139.3 mmol/L (137-145)
--- NOTE | 2018-03-29 18:25 | Progress Note ---
Provider Note Provider Note: The patient is a 67-year-old female with a past medical history of hyperlipidemia, hypertension, asthma, bronchitis, COPD, GERD, arthritis, tobacco dependence who was admitted 03/29/18 in the lotus notes developer for debility, anemia, hypokalemia, and acute bacterial bronchitis with COPD exacerbation. I did make 2 attempts to visit the patient today; during the first attempt the patient was up to the restroom with complaint of incontinence of loose stools, and during the second attempt the patient was already being evaluated by respiratory therapy, physical therapy, and occupational therapy services. Therefore, she was not personally seen and evaluated today, however, she was admitted by the Rug Cleaning Supervisor after midnight. The patient's presenting complaints , admission H&P, laboratory results, overnight events/vital signs, and current orders were reviewed. Agree with the initial plan of care as established. (1) Anemia Multifactorial, secondary to iron and B12 deficiency, likely related to severe protein calorie malnutrition malnutrition. She was provided IM B12 and IV Venofer this morning. She is placed on thiamine and folic acid supplements. Protein supplements (Boost) with meals; registered dietitian has been consulted. Repeat hemoglobin this afternoon confirms that her hemoglobin is stable (8.1--> 8.3). Occult stool is pending. (2) Bedbug bite with infection The patient is placed on contact precautions. (3) Hypokalemia Unclear cause, likely related to malnutrition, and possibly related to loose stools as the patient reported 2 episodes of incontinence today. The patient was provided K riders; repeat BMP reveals potassium of 4.0. We will continue to monitor with daily chemistries and replace as necessary. (4) Severe protein-calorlie malnutrition Patient is placed on a regular diet with boost supplementations to be sent with each tray. Registered dietitian is consulted; appreciate their recommendations. The patient may benefit from appetite stimulant. Will continue to monitor daily chemistries. (5) Weight loss Likely secondary to advanced COPD complicated by malnutrition. Daily weights. Remaining plan as above. (6) Acute bacterial bronchitis The patient is placed on p.o. doxycycline, scheduled and as needed nebulizer treatments, supplemental oxygen as needed to maintain oxygen saturations greater than 88%, Singulair, Mucinex twice daily, p.o. prednisone, with flutter valve to bedside. (7) Tobacco abuse Smoking cessation is encouraged; nicotine replacement therapies are provided. (8) COPD exacerbation Plan as above. (9) Diarrhea Patient reported 2 episodes of loose, watery, stool incontinence today. Unfortunately stools members were not collected. Occult stool, C. difficile (although unlikely as the patient has not been on IV antibiotics recently), and stool culture are pending.
[2018-03-29] MEDS: SERTRALINE HCL 50 MG TABLET PO SCH (22:12)
[2018-03-29] MEDS: MONTELUKAST SODIUM 10 MG TABLET PO SCH (22:12)
[2018-03-29] MEDS: GUAIFENESIN 600 MG TABLET.SA PO SCH (22:12)
[2018-03-29] MEDS: DOXYCYCLINE HYCLATE 100 MG TABLET PO SCH (22:14)
[2018-03-29] MEDS: LABETALOL HCL 200 MG TABLET PO SCH (22:15)
[2018-03-30] MEDS: IPRATROPIUM/ALBUTEROL 0.5-2.5 MG/3 ML AMPUL NEB SCH ×4 (02:17→21:05)
[2018-03-30] MEDS: HEPARIN SOD (PORCINE) 5,000 UNIT/ML 1 ML SYRINGE SUBCUT SCH ×3 (06:08→21:17)
[2018-03-30] MEDS: BUSPIRONE HCL 10 MG TABLET PO SCH ×3 (06:08→21:18)
[2018-03-30] MEDS: BUPROPION HCL 100 MG TABLET PO SCH ×3 (06:08→21:18)
[2018-03-30 06:21] LABS: ABSOLUTE LYMPHOCYTES (AUTO) 2.5 10^3/uL (0.5-4.7); ABSOLUTE MONOCYTES (AUTO) 0.8 10^3/uL (0.1-1.4); ABSOLUTE NEUT (AUTO) 3.5 10^3/uL (1.7-8.2); BASOPHILS % (AUTO) 0.6 % (0-2); EOSINOPHILS % (AUTO) 0.4 % (0-6); HEMATOCRIT 22.7 % (36.0-47.0); LYMPHOCYTES % (AUTO) 36.7 % (13-45); MEAN CORPUSCULAR HEMOGLOBIN 29.8 pg (27.0-33.4); MEAN CORPUSCULAR HGB CONC 32.9 g/dL (32.0-36.0); MEAN CORPUSCULAR VOLUME 90 fl (80-97); MONOCYTES % (AUTO) 11.8 % (3-13); PLATELET COUNT 323 10^3/uL (150-450); RED BLOOD COUNT 2.52 10^6/uL (3.72-5.28); RED CELL DISTRIBUTION WIDTH 15.6 % (11.5-14.0); SEGMENTED NEUTROPHILS % (AUTO) 50.5 % (42-78); TOTAL CELLS COUNTED % (AUTO) 100 %; WHITE BLOOD COUNT 6.9 10^3/uL (4.0-10.5)
[2018-03-30 06:29] LABS: HEMOGLOBIN 7.5 g/dL (12.0-15.5)
[2018-03-30 06:41] LABS: ALANINE AMINOTRANSFERASE 24 U/L (9-52); ALBUMIN 2.9 g/dL (3.5-5.0); ALKALINE PHOSPHATASE 73 U/L (38-126); ANION GAP 8 (5-19); ASPARTATE AMINO TRANSFERASE 12 U/L (14-36); BILIRUBIN,DIRECT 0.2 mg/dL (0.0-0.4); BILIRUBIN,TOTAL 0.2 mg/dL (0.2-1.3); BLOOD UREA NITROGEN 15 mg/dL (7-20); CALCIUM 8.5 mg/dL (8.4-10.2); CARBON DIOXIDE 26 mmol/L (22-30); CHLORIDE 104 mmol/L (98-107); GLUCOSE 93 mg/dL (75-110); POTASSIUM 4.2 mmol/L (3.6-5.0); SODIUM 138.3 mmol/L (137-145); TOTAL PROTEIN 5.4 g/dL (6.3-8.2)
[2018-03-30] MEDS: CYANOCOBALAMIN (VITAMIN B-12) INJ 1000 MCG/1 ML VIAL IM SCH (09:43)
[2018-03-30] MEDS: LABETALOL HCL 200 MG TABLET PO SCH ×2 (09:43→21:22)
[2018-03-30] MEDS: GUAIFENESIN 600 MG TABLET.SA PO SCH ×2 (09:44→21:19)
[2018-03-30] MEDS: DOXYCYCLINE HYCLATE 100 MG TABLET PO SCH ×2 (09:44→21:27)
[2018-03-30] MEDS: PREDNISONE 20 MG TABLET PO SCH (09:44)
[2018-03-30] MEDS: DOCUSATE SODIUM 100 MG CAPSULE PO SCH (09:45)
[2018-03-30] MEDS: SERTRALINE HCL 50 MG TABLET PO SCH ×2 (09:45→21:18)
[2018-03-30] MEDS: AMLODIPINE BESYLATE 5 MG TABLET PO SCH (09:46)
[2018-03-30] MEDS: LANSOPRAZOLE 15 MG TAB.RAP.DR PO SCH (09:46)
[2018-03-30] MEDS ORDERED: NORMAL SALINE 250 ML IV PRN ×2 (12:05)
--- NOTE | 2018-03-30 15:42 | PDOC PROGRESS REPORT ---
Subjective Progress Note for:: 03/30/18 Subjective:: The patient is a 67-year-old female with a past medical history of hyperlipidemia, hypertension, asthma, bronchitis, COPD, GERD, arthritis, tobacco dependence who was admitted 03/29/18 in the [facility] for debility, anemia, hypokalemia, and acute bacterial bronchitis with COPD exacerbation. The patient was seen on morning rounds. She was found sitting up to the edge of the bed on 2lpm of supplemental oxygen. She is noted to be tachypnic with a frequent cough, but fully conversational and speaks without pauses. She reports that she does have an oxygen concentrator at home that she utilizes while sleeping and when acutely ill. Patient reports continued generalized weakness and fatigue. She does report a history of chronic anemia, but states that she has never required B12 injections , iron infusions, or transfusions in the past. She clarifies her medical history, stating that the breast mass and rib that was removed in the was found to be nonmalignant; she does not have a history of cancer. She states that she has never had a colonoscopy. She denies recent history of melena, hematochezia, hematemesis. Further, she denies vaginal bleeding. She does report right upper quadrant abdominal pain, described as discomfort, that waxes and wanes but does not resolve entirely. She denies alleviating or exacerbating session. She is uncertain of how long the discomfort has been present. She does endorse approximately 6 weeks of weight loss; down approximately 15 pounds. Reviewed the risks and benefits of blood transfusion; hemoglobin today has trended downwards and is currently at 7.5. She is agreeable to transfusion of 1 unit today. She has no other questions or concerns at this time. No concerns per nursing. Reason For Visit: HYPOKALEMIA MALNUTRITION, GAIT DISORDER Physical Exam Vital Signs: Temp Pulse Resp BP Pulse Ox 98.3 F 79 18 126/42 H 94 03/30/18 11:39 03/30/18 14:03 03/30/18 14:03 03/30/18 11:39 03/30/18 14:03 Intake & Output 03/29/18 03/30/18 03/31/18 06:59 06:59 06:59 Intake Total 250 0 Output Total 2 Balance 248 0 Weight 41.9 kg General appearance: PRESENT: no acute distress, cooperative, well-developed, other - Cachectic Head exam: PRESENT: atraumatic, normocephalic Eye exam: PRESENT: conjunctiva pale, EOMI, PERRLA. ABSENT: scleral icterus Ear exam: PRESENT: normal external ear exam Mouth exam: PRESENT: moist, tongue midline Teeth exam: PRESENT: poor dentation Neck exam: ABSENT: carotid bruit, JVD, lymphadenopathy, thyromegaly Respiratory exam: PRESENT: decreased breath sounds, prolonged expiratory phas, rhonchi, symmetrical, tachypnea, wheezes - BUL inspiratory, other - Supplemental oxygen 2 L/min. ABSENT: rales Cardiovascular exam: PRESENT: RRR. ABSENT: diastolic murmur, rubs, systolic murmur Pulses: PRESENT: normal dorsalis pedis pul Vascular exam: PRESENT: normal capillary refill GI/Abdominal exam: PRESENT: normal bowel sounds, soft. ABSENT: distended, guarding, mass, organolmegaly, rebound, tenderness Rectal exam: PRESENT: deferred Extremities exam: PRESENT: full ROM. ABSENT: calf tenderness, clubbing, pedal edema Neurological exam: PRESENT: alert, awake, oriented to person, oriented to place , oriented to time, oriented to situation, CN II-XII grossly intact. ABSENT: motor sensory deficit Psychiatric exam: PRESENT: appropriate affect, normal mood. ABSENT: homicidal ideation, suicidal ideation Skin exam: PRESENT: dry, intact, pallor, warm. ABSENT: cyanosis, rash Results Laboratory Results: 03/30/18 05:02 03/30/18 05:02 03/29/18 03/29/18 03/30/18 15:15 15:15 05:02 WBC 5.8 6.9 RBC 2.79 L 2.52 L Hgb 8.3 L 7.5 L Hct 25.3 L 22.7 L MCV 91 90 MCH 29.9 29.8 MCHC 33.0 32.9 RDW 15.6 H 15.6 H Plt Count 348 323 Seg Neutrophils % 50.5 Lymphocytes % 36.7 Monocytes % 11.8 Eosinophils % 0.4 Basophils % 0.6 Absolute Neutrophils 3.5 Absolute Lymphocytes 2.5 Absolute Monocytes 0.8 Absolute Eosinophils 0.0 Absolute Basophils 0.0 Sodium 139.3 Potassium 4.0 Chloride 107 Carbon Dioxide 21 L Anion Gap 11 BUN 6 L Creatinine 0.55 Est GFR ( Amer) > 60 Est GFR (Non-Af Amer) > 60 Glucose 152 H Calcium 7.9 L Total Bilirubin AST ALT Alkaline Phosphatase Total Protein Albumin Stool Occult Blood Blood Type Antibody Screen 03/30/18 03/30/18 03/30/18 05:02 09:34 13:10 WBC RBC Hgb Hct MCV MCH MCHC RDW Plt Count Seg Neutrophils % Lymphocytes % Monocytes % Eosinophils % Basophils % Absolute Neutrophils Absolute Lymphocytes Absolute Monocytes Absolute Eosinophils Absolute Basophils Sodium 138.3 Potassium 4.2 Chloride 104 Carbon Dioxide 26 Anion Gap 8 BUN 15 Creatinine 0.53 Est GFR ( Amer) > 60 Est GFR (Non-Af Amer) > 60 Glucose 93 Calcium 8.5 Total Bilirubin 0.2 AST 12 L ALT 24 Alkaline Phosphatase 73 Total Protein 5.4 L Albumin 2.9 L Stool Occult Blood NEGATIVE Blood Type O POSITIVE Antibody Screen NEGATIVE 03/29/18 15:15 NT-Pro-B Natriuret Pep 683 Impressions: Chest CT 03/28/18 20:20 IMPRESSION: No acute thoracic pathology. Chronic post surgical changes in the left hemithorax. No evidence of recurrent disease. Assessment & Plan - Diagnosis (1) Anemia Qualifiers: Anemia type: unspecified type Qualified Code(s): D64.9 - Anemia, unspecified Is this a current diagnosis for this admission?: Yes Plan: Multifactorial, secondary to iron and B12 deficiency, likely related to severe protein calorie malnutrition malnutrition. Hgb trending down (8.1--> 8.3--> 7.5) Occult stool is negative. She was provided IM B12 and IV Venofer yesterday morning. She is placed on thiamine and folic acid supplements. Protein supplements (Boost) with meals. Registered dietitian has been consulted. Patient has agreed to transfusion of [address] ABD/Pelvis today 2/2 abdominal pain; concern for CA. Regardless, patient will benefit from Hem/[place] follow up. Will place inpatient consultation pending CT results. (2) Acute bacterial bronchitis Is this a current diagnosis for this admission?: Yes Plan: Somewhat improved today. The patient is placed on p.o. doxycycline She is provided scheduled and as needed nebulizer treatments. Supplemental oxygen as needed to maintain oxygen saturations greater than 88% We will continue her home dose Singulair Have initiated Mucinex twice daily and p.o. prednisone Flutter valve to bedside. She will require oxygen qualification testing prior to discharge the patient has a concentrator but does not have portable tanks. (3) Severe protein-calorie malnutrition Is this a current diagnosis for this admission?: Yes Plan: Evidenced by BMI of 16.9, loss of subcutaneous fat with loose skin, report of 15 pound weight loss over the last 6 weeks, and hypoalbuminemia (albumin 2.9). Patient is placed on a regular diet with boost supplementations to be sent with each tray. Registered dietitian is consulted; appreciate their recommendations. The patient may benefit from appetite stimulant. Will continue to monitor daily chemistries. (4) Abdominal pain Qualifiers: Abdominal location: right upper quadrant Qualified Code(s): R10.11 - Right upper quadrant pain Is this a current diagnosis for this admission?: Yes Plan: Unclear etiology; patient reports she has had stool right upper quadrant abdominal pain. Of time without alleviating or exacerbating symptoms. WBCs are normal and patient is afebrile; unlikely to be infectious process. However with recent report of weight loss, fatigue, and anemia with poor healthcare utilization I am concerned there may be underlying malignancy. Therefore, we will obtain a CT ABD/Pelvis. (5) COPD exacerbation Is this a current diagnosis for this admission?: Yes Plan: Plan as above (6) Bedbug bite with infection Is this a current diagnosis for this admission?: Yes Plan: Strict contact precautions. Discharge planning has been consulted. (7) Weight loss Is this a current diagnosis for this admission?: Yes Plan: Likely secondary to advanced COPD complicated by malnutrition. Daily weights. Remaining plan as above. (8) Tobacco dependence Is this a current diagnosis for this admission?: Yes Plan: Smoking cessation is encouraged; nicotine replacement therapies are provided. (9) Diarrhea Is this a current diagnosis for this admission?: Yes Plan: Resolved. Stool cultures pending. (10) Hypokalemia Is this a current diagnosis for this admission?: Yes Plan: Replete. Unclear cause, likely related to malnutrition, and possibly related to loose stools as the patient reported 2 episodes of incontinence yesterday. We will continue to monitor with daily chemistries and replace as necessary. - Time Time Spent with patient: 25-34 minutes Medications reviewed and adjusted accordingly: Yes Anticipated discharge: Home Within: within 48 hours
--- NOTE | 2018-03-30 19:34 | RADIOLOGY REPORT (SQ) ---
EXAM DESCRIPTION: CT ABD/PELVIS WITH IV ORAL COMPLETED DATE/TIME: 03/30/2018 7:13 pm REASON FOR STUDY: ABD PAIN COMPARISON: CT chest from 2 days ago. TECHNIQUE: CT scan of the abdomen and pelvis performed with intravenous and oral contrast using gualberto con scanning technique with dynamic intravenous contrast injection. Images reviewed with lung, soft t issue, and bone windows. Reconstructed coronal and sagittal MPR images reviewed. Delayed images for e valuation of the urinary system also acquired. All images stored on PACS. All CT scanners at this facility use dose modulation, iterative reconstruction, and/or weight based d osing when appropriate to reduce radiation dose to as low as reasonably achievable (ALARA). [facility]: Dose Right [facility]: CareDose [facility]: Dose Right [facility]: Teradose 4D [facility]: TILE Financial CONTRAST TYPE AND DOSE: contrast/concentration: Isovue 370.00 mg/ml; Total Contrast Delivered: 48.0 ml; Total Saline Delivered: 65.0 ml RENAL FUNCTION: Creatinine 0.53 RADIATION DOSE: CT Rad equipment meets quality standard of care and radiation dose reduction techniq ues were employed. CTDIvol: 2.4 - 3.4 mGy. DLP: 373 mGy-cm.. LIMITATIONS: None. FINDINGS: LOWER CHEST: No significant findings. No nodules or infiltrates. LIVER: Normal size. No masses. No dilated ducts. SPLEEN: Normal size. No focal lesions. PANCREAS: No inflammatory changes appreciated. No duct dilatation or mass. Coarse calcification brenda ng the pancreatic tail may reflect chronic pancreatitis. GALLBLADDER: No identified stones by CT criteria. No inflammatory changes to suggest cholecystitis. ADRENAL GLANDS: No significant masses or asymmetry. RIGHT KIDNEY AND URETER: No anastasiya hydronephrosis. Incidental extrarenal pelvis. No stones are eleanor s. LEFT KIDNEY AND URETER: No solid masses. No significant calcification. No hydronephrosis or hydrouret er. AORTA AND VESSELS: Dense aortic calcification without evidence of aneurysm. Generally patent major a rterial and venous structures, atherosclerotic calcification limits assessment of the iliac vessels p articularly. RETROPERITONEUM: No retroperitoneal adenopathy, hemorrhage or masses. BOWEL AND PERITONEAL CAVITY: No obstruction. No visualized masses. No free fluid. No inflammatory ch anges or thickening of bowel wall. APPENDIX: Normal. PELVIS: No significant masses. Normal bladder. No free fluid. ABDOMINAL WALL: No masses. No hernias. BONES: No significant or acute findings. OTHER: No other significant finding. IMPRESSION: 1. No acute abdominopelvic abnormality appreciated. 2. Severe atherosclerotic disease. TECHNICAL DOCUMENTATION: JOB ID: [id number] Quality ID # [id number]: Final reports with documentation of one or more dose reduction techniques (e.g., Au tomated exposure control, adjustment of the mA and/or kV according to patient size, use of iterative reconstruction technique) 2010 [employer]- All Rights Reserved Reading location - IP/workstation name: [email or web address]
[2018-03-30 21:14] LABS: ABSOLUTE LYMPHOCYTES (AUTO) 1.5 10^3/uL (0.5-4.7); ABSOLUTE MONOCYTES (AUTO) 0.5 10^3/uL (0.1-1.4); BASOPHILS % (AUTO) 0.5 % (0-2); EOSINOPHILS % (AUTO) 0.1 % (0-6); HEMATOCRIT 28.7 % (36.0-47.0); MEAN CORPUSCULAR HEMOGLOBIN 29.8 pg (27.0-33.4); MEAN CORPUSCULAR HGB CONC 33.6 g/dL (32.0-36.0); MEAN CORPUSCULAR VOLUME 89 fl (80-97); MONOCYTES % (AUTO) 7.1 % (3-13); PLATELET COUNT 352 10^3/uL (150-450); RED BLOOD COUNT 3.24 10^6/uL (3.72-5.28); RED CELL DISTRIBUTION WIDTH 16.2 % (11.5-14.0); SEGMENTED NEUTROPHILS % (AUTO) 71.3 % (42-78); TOTAL CELLS COUNTED % (AUTO) 100 %
[2018-03-30] MEDS: MONTELUKAST SODIUM 10 MG TABLET PO SCH (21:18)
[2018-03-30 21:22] LABS: HEMOGLOBIN 9.6 g/dL (12.0-15.5)
[2018-03-31] MEDS: IPRATROPIUM/ALBUTEROL 0.5-2.5 MG/3 ML AMPUL NEB SCH ×2 (02:43→07:52)
[2018-03-31] MEDS: BUSPIRONE HCL 10 MG TABLET PO SCH (05:41)
[2018-03-31] MEDS: BUPROPION HCL 100 MG TABLET PO SCH (05:41)
[2018-03-31] MEDS: HEPARIN SOD (PORCINE) 5,000 UNIT/ML 1 ML SYRINGE SUBCUT SCH (05:42)
[2018-03-31 06:05] LABS: ABSOLUTE BASOPHILS # (AUTO) 0.1 10^3/uL (0.0-0.2); ABSOLUTE EOSINOPHILS # (AUTO) 0.1 10^3/uL (0.0-0.6); ABSOLUTE LYMPHOCYTES (AUTO) 3.1 10^3/uL (0.5-4.7); ABSOLUTE MONOCYTES (AUTO) 0.8 10^3/uL (0.1-1.4); ABSOLUTE NEUT (AUTO) 3.9 10^3/uL (1.7-8.2); BASOPHILS % (AUTO) 0.9 % (0-2); EOSINOPHILS % (AUTO) 1.1 % (0-6); HEMATOCRIT 27.2 % (36.0-47.0); HEMOGLOBIN 9.2 g/dL (12.0-15.5); LYMPHOCYTES % (AUTO) 39.2 % (13-45); MEAN CORPUSCULAR HGB CONC 33.9 g/dL (32.0-36.0); MEAN CORPUSCULAR VOLUME 89 fl (80-97); MONOCYTES % (AUTO) 10.1 % (3-13); PLATELET COUNT 301 10^3/uL (150-450); RED BLOOD COUNT 3.07 10^6/uL (3.72-5.28); RED CELL DISTRIBUTION WIDTH 16.3 % (11.5-14.0); SEGMENTED NEUTROPHILS % (AUTO) 48.7 % (42-78); TOTAL CELLS COUNTED % (AUTO) 100 %
[2018-03-31 06:25] LABS: ALANINE AMINOTRANSFERASE 16 U/L (9-52); ALBUMIN 3.1 g/dL (3.5-5.0); ALKALINE PHOSPHATASE 67 U/L (38-126); ANION GAP 10 (5-19); ASPARTATE AMINO TRANSFERASE 13 U/L (14-36); BILIRUBIN,DIRECT 0.2 mg/dL (0.0-0.4); BILIRUBIN,TOTAL 0.2 mg/dL (0.2-1.3); BLOOD UREA NITROGEN 18 mg/dL (7-20); CALCIUM 8.7 mg/dL (8.4-10.2); CARBON DIOXIDE 27 mmol/L (22-30); CHLORIDE 102 mmol/L (98-107); GLUCOSE 96 mg/dL (75-110); POTASSIUM 4.3 mmol/L (3.6-5.0); SODIUM 138.7 mmol/L (137-145); TOTAL PROTEIN 5.7 g/dL (6.3-8.2)
[2018-03-31] MEDS: CYANOCOBALAMIN (VITAMIN B-12) INJ 1000 MCG/1 ML VIAL IM SCH (11:31)
[2018-03-31] MEDS: LABETALOL HCL 200 MG TABLET PO SCH (11:32)
[2018-03-31] MEDS: DOXYCYCLINE HYCLATE 100 MG TABLET PO SCH (11:32)
[2018-03-31] MEDS: DOCUSATE SODIUM 100 MG CAPSULE PO SCH (11:33)
[2018-03-31] MEDS: PREDNISONE 20 MG TABLET PO SCH (11:33)
[2018-03-31] MEDS: LANSOPRAZOLE 15 MG TAB.RAP.DR PO SCH (11:33)
[2018-03-31] MEDS: AMLODIPINE BESYLATE 5 MG TABLET PO SCH (11:34)
[2018-03-31] MEDS: SERTRALINE HCL 50 MG TABLET PO SCH (11:34)
[2018-03-31] MEDS: GUAIFENESIN 600 MG TABLET.SA PO SCH (11:34)
--- NOTE | 2018-03-31 12:08 | PDOC CONSULTATION ---
Consultation Consult Date: 03/31/18 Consult reason:: Anemia History of Present Illness Admission Date/PCP: 03/29/18 02:19 POLLY MCKENZIE PA-C Patient complains of: Anemia, weakness History of Present Illness: ANGELIQUE PETIT is a 67 year old female seen at the request of the hospitalist service. He was admitted for weakness and was found to have severe anemia. She received a transfusion, and is feeling better today. Patient denies any melena, hematemesis, or hematochezia. She does have weakness, malaise, fatigue , and orthostasis. Patient denies any headache, chest pain, shortness of breath , fevers, chills, blurry vision, or headache. The patient has never had a colonoscopy or EGD. The patient does not take anticoagulants. Past Medical History Cardiac Medical History: Reports: Hyperlipidema, Hypertension Denies: Coronary Artery Disease, Myocardial Infarction Pulmonary Medical History: Reports: Asthma, Bronchitis, Chronic Obstructive Pulmonary Disease (COPD), Pneumonia Denies: Tuberculosis Neurological Medical History: Denies: Seizures GI Medical History: Reports: Gastroesophageal Reflux Disease Denies: Hepatitis, Hiatal Hernia Musculoskeltal Medical History: Reports: Arthritis Psychiatric Medical History: Reports: Depression, Tobacco Dependency Hematology: Denies: Anemia, Sickle Cell Disease Past Surgical History Past Surgical History: Reports: Orthopedic Surgery - Fourth left rib resection for tumor., Tubal Ligation Denies: Amputation, Hysterectomy, Mastectomy, Pacemaker Social History Lives with: Family Smoking Status: Current Every Day Smoker Cigarettes Packs Per Day: 1 Number of Years Smokin Last Time Smoked: 03/28/2018 Frequency of Alcohol Use: Occasional Hx Recreational Drug Use: No - denies Drugs: None Hx Prescription Drug Abuse: No - Advance Directive Resuscitation Status: Full Code Family History Family History: Arthritis, COPD, Malignancy - Several members in the family mother father brother had cancer. denies: None Parental Family History Reviewed: Yes Children Family History Reviewed: Yes Sibling(s) Family History Reviewed.: Yes Medication/Allergy Home Medications: Albuterol Sulfate [Proair HFA Inhalation Aerosol 8.5 gm MDI] 2 puff IH Q4HP PRN 10/28/16 Amlodipine Besylate [Norvasc 5 mg Tablet] 5 mg PO DAILY 10/28/16 Fluticasone/Salmeterol [Advair 250-50 Diskus 14 Dose/Diskus] 1 inh IH Q12 Labetalol HCl [Trandate] 300 mg PO Q12 10/28/16 Omeprazole 20 mg PO DAILY 10/28/16 Primidone [Mysoline 250 mg Tablet] 250 mg PO Q12 10/28/16 Sertraline HCl [Zoloft] 100 mg PO Q12 10/28/16 Tiotropium [place] [Spiriva Handihaler 5 Cap/Kit (18 Mcg/Cap)] 1 cap IH DAILY Buspirone HCl [Buspar 15 mg Tablet] 15 mg PO Q8 03/29/18 Cholecalciferol (Vitamin D3) [Vitamin D3 1000 Unit Tablet] 1,000 unit PO DAILY 03/29/18 Montelukast Sodium [Singulair 10 mg Tablet] 10 mg PO QHS 03/29/18 Niacin (Inositol Niacinate) [Niacin 500 mg Capsule] 500 mg PO DAILY 03/29/18 Potassium Gluconate [Potassium] 99 mg PO DAILY 03/29/18 Bupropion HCl [Wellbutrin 100 mg Tablet] 100 mg PO Q8 tablet 03/31/18 Cyanocobalamin (Vitamin B-12) [Vitamin B-12 1000 mcg Tablet] 1,000 mcg PO DAILY #30 tablet 03/31/18 Multivitamins W-Iron [Flintstones Chewable Multivit W/Fe Tab] 1 tab PO DAILY # 30 tab.chew 03/31/18 Prednisone [Deltasone 20 mg Tablet] 20 mg PO DAILY #9 tablet 03/31/18 Allergies/Adverse Reactions: ibuprofen [From Motrin] Allergy (Verified 08/22/15 17:44) SWELL Tetanus Vaccines and Toxoid [Tetanus] Allergy (Verified 08/22/15 17:44) Nausea Review of Systems Constitutional: PRESENT: anorexia, fatigue, weakness. ABSENT: chills, fever(s) , headache(s) Eyes: ABSENT: visual disturbances Ears: ABSENT: hearing changes Nose, Mouth, and Throat: ABSENT: sore throat Cardiovascular: ABSENT: chest pain, edema, palpitations Respiratory: ABSENT: cough, dyspnea Gastrointestinal: ABSENT: abdominal pain, bloating, hematemesis, hematochezia, melena, nausea, vomiting Genitourinary: ABSENT: dysuria Musculoskeletal: ABSENT: back pain Integumentary: ABSENT: pruritus, rash Neurological: ABSENT: confusion, convulsions, dizziness, numbness Psychiatric: ABSENT: anxiety, depression Endocrine: ABSENT: cold intolerance, heat intolerance Hematologic/Lymphatic: ABSENT: easy bleeding, easy bruising Physical Exam Vital Signs: Temp Pulse Resp BP Pulse Ox 97.7 F 78 17 144/67 H 94 03/31/18 08:01 03/31/18 08:01 03/31/18 08:01 03/31/18 08:01 03/31/18 08:01 Intake & Output 03/30/18 03/31/18 04/01/18 06:59 06:59 06:59 Intake Total 250 1059 Output Total 2 Balance 248 1059 Weight 41.9 kg 41.9 kg General appearance: PRESENT: no acute distress Head exam: PRESENT: atraumatic, normocephalic Eye exam: PRESENT: EOMI, PERRLA. ABSENT: scleral icterus Mouth exam: PRESENT: moist, neck supple Neck exam: ABSENT: meningismus, tenderness, thyromegaly, tracheal deviation Respiratory exam: PRESENT: clear to auscultation leo, unlabored. ABSENT: accessory muscle use, chest wall tenderness, tachypnea, wheezes Pulses: PRESENT: normal radial pulses Vascular exam: PRESENT: normal capillary refill. ABSENT: pallor GI/Abdominal exam: PRESENT: normal bowel sounds, soft. ABSENT: distended, firm , tenderness Rectal exam: PRESENT: deferred Gentrourinary exam: ABSENT: erythema Extremities exam: ABSENT: clubbing, pedal edema Musculoskeletal exam: ABSENT: deformity Neurological exam: PRESENT: alert, awake, oriented to person, oriented to place , oriented to time, oriented to situation, CN II-XII grossly intact. ABSENT: motor sensory deficit Psychiatric exam: ABSENT: agitated, anxious, depressed Focused psych exam: ABSENT: delusional Skin exam: ABSENT: cyanosis, erythema, jaundice, pallor Results Laboratory Results: 03/31/18 05:53 03/31/18 05:53 03/30/18 03/30/18 03/31/18 13:10 20:20 05:53 WBC 7.0 8.0 RBC 3.24 L 3.07 L Hgb 9.6 L D 9.2 L Hct 28.7 L 27.2 L MCV 89 89 MCH 29.8 30.0 MCHC 33.6 33.9 RDW 16.2 H 16.3 H Plt Count 352 301 Seg Neutrophils % 71.3 48.7 Lymphocytes % 21.0 39.2 Monocytes % 7.1 10.1 Eosinophils % 0.1 1.1 Basophils % 0.5 0.9 Absolute Neutrophils 5.0 3.9 Absolute Lymphocytes 1.5 3.1 Absolute Monocytes 0.5 0.8 Absolute Eosinophils 0.0 0.1 Absolute Basophils 0.0 0.1 Sodium Potassium Chloride Carbon Dioxide Anion Gap BUN Creatinine Est GFR ( Amer) Est GFR (Non-Af Amer) Glucose Calcium Total Bilirubin AST ALT Alkaline Phosphatase Total Protein Albumin Blood Type O POSITIVE Antibody Screen NEGATIVE 03/31/18 05:53 WBC RBC Hgb Hct MCV MCH MCHC RDW Plt Count Seg Neutrophils % Lymphocytes % Monocytes % Eosinophils % Basophils % Absolute Neutrophils Absolute Lymphocytes Absolute Monocytes Absolute Eosinophils Absolute Basophils Sodium 138.7 Potassium 4.3 Chloride 102 Carbon Dioxide 27 Anion Gap 10 BUN 18 Creatinine 0.59 Est GFR ( Amer) > 60 Est GFR (Non-Af Amer) > 60 Glucose 96 Calcium 8.7 Total Bilirubin 0.2 AST 13 L ALT 16 Alkaline Phosphatase 67 Total Protein 5.7 L Albumin 3.1 L Blood Type Antibody Screen 03/29/18 15:15 NT-Pro-B Natriuret Pep 683 Impressions: Chest CT 03/28/18 20:20 IMPRESSION: No acute thoracic pathology. Chronic post surgical changes in the left hemithorax. No evidence of recurrent disease. Abdomen/Pelvis CT 03/30/18 00:00 IMPRESSION: 1. No acute abdominopelvic abnormality appreciated. 2. Severe atherosclerotic disease. Assessment & Plan - Diagnosis (1) Anemia Qualifiers: Anemia type: iron deficiency Iron deficiency anemia type: unspecified iron deficiency Qualified Code(s): D50.9 - Iron deficiency anemia, unspecified Is this a current diagnosis for this admission?: Yes - Plan Summary Plan Summary: This is a 67-year-old female with weakness and anemia. Patient is in need of EGD and colonoscopy for full anemia workup. I plan to perform this on an outpatient basis. I will get the patient in contact with my office to arrange the day and time. The patient is in agreement with the treatment plan. I have encouraged her to contact me immediately with any questions or concerns.
[2018-03-31 13:39] VITALS: BP 149/67
[2018-04-01] MEDS ORDERED: MULTIVITAMINS W-IRON TABLET, CHEWABLE PO SCH (10:00)
[2018-04-01] MEDS ORDERED: CYANOCOBALAMIN (VITAMIN B-12) 1,000 MCG TABLET PO SCH (10:00)
--- NOTE | 2018-05-04 14:17 | PDOC DISCHARGE SUMMARY ---
General - Admit/Disc Date/PCP Admission Date/Primary Care Provider: 03/29/18 02:19 POLLY MCKENZIE PA-C Discharge Date: 03/31/18 - Additional Information Resuscitation Status: Full Code Discharge Diet: As Tolerated Discharge Activity: Activity As Tolerated Prescriptions: Cyanocobalamin (Vitamin B-12) [Vitamin B-12 1000 mcg Tablet] 1,000 mcg PO DAILY #30 tablet Multivitamins W-Iron [Flintstones Chewable Multivit W/Fe Tab] 1 tab PO DAILY # 30 tab.chew Prednisone [Deltasone 20 mg Tablet] 20 mg PO DAILY #9 tablet Home Medications: Albuterol Sulfate [Proair HFA Inhalation Aerosol 8.5 gm MDI] 2 puff IH Q4HP PRN 10/28/16 Amlodipine Besylate [Norvasc 5 mg Tablet] 5 mg PO DAILY 10/28/16 Fluticasone/Salmeterol [Advair 250-50 Diskus 14 Dose/Diskus] 1 inh IH Q12 Labetalol HCl [Trandate] 300 mg PO Q12 10/28/16 Omeprazole 20 mg PO DAILY 10/28/16 Primidone [Mysoline 250 mg Tablet] 250 mg PO Q12 10/28/16 Sertraline HCl [Zoloft] 100 mg PO Q12 10/28/16 Tiotropium Adin [Spiriva Handihaler 5 Cap/Kit (18 Mcg/Cap)] 1 cap IH DAILY Buspirone HCl [Buspar 15 mg Tablet] 15 mg PO Q8 03/29/18 Cholecalciferol (Vitamin D3) [Vitamin D3 1000 Unit Tablet] 1,000 unit PO DAILY 03/29/18 Montelukast Sodium [Singulair 10 mg Tablet] 10 mg PO QHS 03/29/18 Niacin (Inositol Niacinate) [Niacin 500 mg Capsule] 500 mg PO DAILY 03/29/18 Potassium Gluconate [Potassium] 99 mg PO DAILY 03/29/18 Bupropion HCl [Wellbutrin 100 mg Tablet] 100 mg PO Q8 tablet 03/31/18 Cyanocobalamin (Vitamin B-12) [Vitamin B-12 1000 mcg Tablet] 1,000 mcg PO DAILY #30 tablet 03/31/18 Multivitamins W-Iron [Flintstones Chewable Multivit W/Fe Tab] 1 tab PO DAILY # 30 tab.chew 03/31/18 Prednisone [Deltasone 20 mg Tablet] 20 mg PO DAILY #9 tablet 03/31/18 History of Present Illness Patient complains of: WEAKNESS & SHORTNESS OF BREATH History of Present Illness: ANGELIQUE PETIT is a 67 year old female with a past medical history of COPD, chronic bronchitis, hypertension, tobacco dependence, weight loss and anorexia. She presents with 1 week of severe debility and unable to ambulate residing in a home without air conditioning. She admits to shortness of breath with exertion and a nonproductive cough. In the emergency room she is found to have tachypnea, profound weakness, malnutrition, anemia, hypokalemia and bedbug infestation. Patient is unclear of her medications. Hospital Course Hospital Course: The patient is a 67-year-old female with a past medical history of hyperlipidemia, hypertension, asthma, bronchitis, COPD, GERD, arthritis, tobacco dependence who was admitted 03/29/18 in the [facility] for debility, anemia, hypokalemia, and acute bacterial bronchitis with COPD exacerbation. Upon further investigation, the patient admitted to a history of chronic anemia but denies every requiring B12 injections. The etiology of her anemia is likely multifactorial, secondary to iron and B12 deficiency, as well as severe protein calorie malnutrition. Hgb trended down (8.1--> 8.3--> 7.5), occult stool negative. Patient was treated with 1U PRBC, she was provided IM B12 and IV Venofer, and placed on thiamine and folic acid supplements. Hematology was contacted about this patient, Dr. Sweeney recommended the patient undergo an upper and lower GI scope to evaluate for possible gastric ulcers. Additionally, he recommended that she follow up with him as an outpatient to determine the cause of her anemia. The patient was seen by surgery, Dr. Shah recommended an outpatient EGD and colonoscopy. Following 2 days in the hospital, the patient was deemed safe for discharge home. Her vital signs were stable. Her hemoglobin was stable at 9.2. She was able to tolerate physical activity without difficulty. The patient was sent home with two supplements: Vitamin B12 and a multivitamin that contains iron. She was instructed to follow-up with hematology and surgery for an outpatient EGD and colonoscopy, as well as a more extensive workup for her anemia. The patient stated full understanding of her discharge instructions. For further information regarding her hospitalization, please refer to the EMR. Physical Exam Vital Signs: Temp Pulse Resp BP Pulse Ox 98.2 F 84 17 149/67 H 94 03/31/18 13:32 03/31/18 13:32 03/31/18 13:32 03/31/18 13:32 03/31/18 13:32 Results Laboratory Results: 03/31/18 05:53 03/31/18 05:53 03/29/18 15:15 NT-Pro-B Natriuret Pep 683 Impressions: Chest CT 03/28/18 20:20 IMPRESSION: No acute thoracic pathology. Chronic post surgical changes in the left hemithorax. No evidence of recurrent disease. Abdomen/Pelvis CT 03/30/18 00:00 IMPRESSION: 1. No acute abdominopelvic abnormality appreciated. 2. Severe atherosclerotic disease. Status: Imported from PACS Qualifiers - * PATIENT BEING DISCHARGED WITH ANY OF THE FOLLOWING DIAGNOSIS: No Plan Discharge Plan: Follow-up with hematology to determine source of anemia. Follow-up with surgery for outpatient EGD and colonoscopy. Time Spent: Less than 30 Minutes
== END 2018-03-31 14:01 | disposition home or self-care (01) | DRG 811 ==
LOC: ER 19:51 → EH 03-29 02:19 → 4N 03-29 04:00
PROVIDERS: ADMIT Internal Medicine; ATTEND Internal Medicine
PROC: 30233N1 Transfusion of Nonautologous Red Blood Cells into Peripheral Vein, Percutaneous Approach (ICD-10-PCS; principal; 2018-03-30)
DX: D50.9 Iron deficiency anemia, unspecified (principal); E43 Unspecified severe protein-calorie malnutrition; Z68.1 Body mass index [BMI] 19.9 or less, adult; J44.1 Chronic obstructive pulmonary disease with (acute) exacerbation; J44.0 Chronic obstructive pulmonary disease with (acute) lower respiratory infection; J20.9 Acute bronchitis, unspecified; T14.8XXA Other injury of unspecified body region, initial encounter; E87.6 Hypokalemia; R19.7 Diarrhea, unspecified; R10.11 Right upper quadrant pain; I10 Essential (primary) hypertension; E78.5 Hyperlipidemia, unspecified; K21.9 Gastro-esophageal reflux disease without esophagitis; M19.90 Unspecified osteoarthritis, unspecified site; F32.9 Major depressive disorder, single episode, unspecified; Z79.899 Other long term (current) drug therapy; F17.210 Nicotine dependence, cigarettes, uncomplicated; Z88.7 Allergy status to serum and vaccine; Z88.6 Allergy status to analgesic agent; F50.89 Other specified eating disorder; R53.83 Other fatigue
CPT/HCPCS: 36415; 36430; 71260; 74177; 80048; 80053; 81001; 82272; 82550; 82607; 82728; 82746; 83540; 83550; 83690; 83735; 83880; 84100; 84134; 84484; 85025; 85027; 85045; 86850; 86900; 86901; 86920; 87045; 87205; 87493; 93005; 93010; 94640; 96365; 96366; 96368; 99285; G8978-GP; G8979-GP; J1644; J1756; J3420; J3475; J3480; J7120; J7512; J7620; P9016

== ENCOUNTER 2018-12-24 21:07 | Emergency (ER) | payer MEDICARE, MEDICAID ==
[2018-12-24 21:46] LABS: ABSOLUTE BASOPHILS # (AUTO) 0.1 10^3/uL (0.0-0.2); ABSOLUTE EOSINOPHILS # (AUTO) 0.1 10^3/uL (0.0-0.6); ABSOLUTE LYMPHOCYTES (AUTO) 2.2 10^3/uL (0.5-4.7); ABSOLUTE MONOCYTES (AUTO) 0.8 10^3/uL (0.1-1.4); ABSOLUTE NEUT (AUTO) 6.6 10^3/uL (1.7-8.2); BASOPHILS % (AUTO) 0.8 % (0-2); EOSINOPHILS % (AUTO) 1.2 % (0-6); HEMATOCRIT 33.8 % (36.0-47.0); HEMOGLOBIN 11.6 g/dL (12.0-15.5); LYMPHOCYTES % (AUTO) 22.2 % (13-45); MEAN CORPUSCULAR HGB CONC 34.3 g/dL (32.0-36.0); MEAN CORPUSCULAR VOLUME 96 fl (80-97); MONOCYTES % (AUTO) 8.6 % (3-13); PLATELET COUNT 301 10^3/uL (150-450); RED CELL DISTRIBUTION WIDTH 13.7 % (11.5-14.0); SEGMENTED NEUTROPHILS % (AUTO) 67.2 % (42-78); TOTAL CELLS COUNTED % (AUTO) 100 %; WHITE BLOOD COUNT 9.8 10^3/uL (4.0-10.5)
[2018-12-24 22:08] LABS: ALANINE AMINOTRANSFERASE 19 U/L (9-52); ALKALINE PHOSPHATASE 112 U/L (38-126); ANION GAP 10 (5-19); ASPARTATE AMINO TRANSFERASE 17 U/L (14-36); BILIRUBIN,DIRECT 0.3 mg/dL (0.0-0.4); BILIRUBIN,TOTAL 0.3 mg/dL (0.2-1.3); BLOOD UREA NITROGEN 11 mg/dL (7-20); CALCIUM 9.2 mg/dL (8.4-10.2); CARBON DIOXIDE 27 mmol/L (22-30); CHLORIDE 101 mmol/L (98-107); GLUCOSE 108 mg/dL (75-110); POTASSIUM 3.3 mmol/L (3.6-5.0); SODIUM 138.1 mmol/L (137-145); TOTAL PROTEIN 6.9 g/dL (6.3-8.2)
--- NOTE | 2018-12-24 22:09 | RADIOLOGY REPORT (SQ) ---
EXAM DESCRIPTION: [facility]: XR CHEST 1 VIEW CLINICAL HISTORY: 68 years Female, Shortness of breath, Productive cough COMPARISON: 10/28/2016 FINDINGS: There is blunting of the left costophrenic angle, suggesting small left pleural effusion. However, there is similar flattening of left hemidiaphragm on 10/28/2016 in this could be due to chronic pleural scarring. No focal acute infiltrates. No pneumothorax. Mild aortic calcification is noted. Heart size is normal. Cervical spine fixation plate is again noted. IMPRESSION: 1. No acute infiltrates. 2. Left pleural scarring versus small left pleural effusion. 3. Aortic atherosclerosis.
--- NOTE | 2018-12-24 22:48 | ER Document Report ---
ED Respiratory Problem - General Chief Complaint: Shortness Of Breath Stated Complaint: DIFFICULTY BREATHING/CHEST PAIN Time Seen by Provider: 12/24/18 22:15 Primary Care Provider: POLLY MCKENZIE PA-C [Primary Care Provider] - Follow up as needed Notes: 68-year-old female to emergency department chief complaint of chest pain shortness of breath. Has been coughing and having wheezing for 1 week. Not getting better. Came in today because her pain in the chest was getting worse. 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 Does smoke. Had 4 breathing treatments at home and 2 breathing treatments by EMS and another one here. Does state that she feels a little bit better. Wears oxygen at home. 2 L. Denies any fevers at this time. Solu-Medrol given in route as well. TRAVEL OUTSIDE OF THE [place] IN LAST 30 DAYS: No - HPI Patient complains to provider of: Chest pain, Short of breath Duration: Continuous Quality of pain: Achy Severity: Moderate Context: Hx asthma, Hx COPD Chest pain/discomfort: Center Cough: Nonproductive - Related Data Allergies/Adverse Reactions: ibuprofen [From Motrin] Allergy (Verified 08/22/15 17:44) SWELL Tetanus Vaccines and Toxoid [Tetanus] Allergy (Verified 08/22/15 17:44) Nausea Past Medical History - General Information source: [employer] Enforcement - Social History Smoking Status: Current Every Day Smoker Frequency of alcohol use: Rare Drug Abuse: None Lives with: Family Family History: Arthritis, COPD, Malignancy - Several members in the family mother father brother had cancer. denies: None Patient has suicidal ideation: No Patient has homicidal ideation: No - Past Medical History Cardiac Medical History: Reports: Hx Hypercholesterolemia, Hx Hypertension Denies: Hx Coronary Artery Disease, Hx Heart Attack Pulmonary Medical History: Reports: Hx Asthma, Hx Bronchitis, Hx COPD, Hx Pneumonia Denies: Hx Tuberculosis Neurological Medical History: Denies: Hx Cerebrovascular Accident, Hx Seizures Renal/ Medical History: Denies: Hx Peritoneal Dialysis GI Medical History: Reports: Hx Gastroesophageal Reflux Disease. Denies: Hx Hepatitis, Hx Hiatal Hernia, Hx Ulcer Musculoskeletal Medical History: Reports Hx Arthritis Psychiatric Medical History: Reports: Hx Depression Infectious Medical History: Denies: Hx Hepatitis Past Surgical History: Reports: Hx Orthopedic Surgery - Fourth left rib resection for tumor., Hx Tubal Ligation. Denies: Hx Hysterectomy, Hx Mastectomy, Hx Open Heart Surgery, Hx Pacemaker - Immunizations Hx Diphtheria, Pertussis, Tetanus Vaccination: Yes Hx Pneumococcal Vaccination: 07/28/10 Review of Systems - Review of Systems Notes: Constitutional: denies: Chills, Diaphoresis, Fever, Malaise, Weakness EENT: denies: Eye discharge, Blurred vision, Tearing, Double vision, Nose congestion, Nose discharge, Throat swelling, Mouth pain Cardiovascular: denies: Palpitations, Heart racing, Orthopnea, Dyspnea, +Chest pain Respiratory: + Cough, Hurts to breathe, Wheezing, Shortness of breath Gastrointestinal: denies: Abdominal pain, Diarrhea, Nausea, Vomiting, Black stools, bright red blood in stool Genitourinary: denies: Burning, Dysuria, Discharge, Frequency, Flank pain, Hematuria Musculoskeletal: denies: Joint pain, Joint swelling, Muscle pain, Muscle stiffness, back pain Hematologic/Lymphatic: denies: Anemia, Easy bleeding, Easy bruising, Blood clots Neurological/Psychological: denies: Confusion, Dementia, Depression, Loss of consciousness Skin: No lesions, no masses, no skin breakdown, no abscesses Physical Exam - Vital signs Vitals: Temp Pulse Resp BP Pulse Ox 98.5 F 89 18 131/62 H 93 12/24/18 21:16 12/24/18 21:16 12/24/18 21:16 12/24/18 21:16 12/24/18 21:16 Interpretation: Normal - General General appearance: Appears well, Alert - HEENT Head: Normocephalic, Atraumatic Eyes: Normal Pupils: PERRL - Respiratory Respiratory status: No respiratory distress Chest status: Nontender Breath sounds: Wheezing Chest palpation: Normal - Cardiovascular Rhythm: Regular Heart sounds: Normal auscultation Murmur: No - Abdominal Inspection: Normal Distension: No distension Bowel sounds: Normal Tenderness: Nontender Organomegaly: No organomegaly - Back Back: Normal, Nontender - Extremities General upper extremity: Normal inspection, Nontender, Normal color, Normal ROM, Normal temperature General lower extremity: Normal inspection, Nontender, Normal color, Normal ROM, Normal temperature, Normal weight bearing. No: Courtney's sign - Neurological Neuro grossly intact: Yes Cognition: Normal Orientation: AAOx4 [place] Coma Scale Eye Opening: Spontaneous [place] Coma Scale Verbal: Oriented [place] Coma Scale Motor: Obeys Commands Didi Coma Scale Total: 15 Speech: Normal Motor strength normal: LUE, RUE, LLE, RLE Sensory: Normal - Psychological Associated symptoms: Normal affect, Normal mood - Skin Skin Temperature: Warm Skin Moisture: Dry Skin Color: Normal Course - Re-evaluation Re-evalutation: 12/24/18 22:53 Chest X-Ray 12/24/18 21:36 IMPRESSION: 1. No acute infiltrates. 2. Left pleural scarring versus small left pleural effusion. 3. Aortic atherosclerosis. 12/24/18 22:54 Patient received duo nebs and site Medrol in route. Feeling better at this time. Chest x-ray does not show obvious infiltrate. Oxygen level is 94% on 2 L of oxygen. EKG is within normal limits. Pending troponin at this time. 12/25/18 00:17 Troponin is negative. Labs are fairly unremarkable. At this time her oxygen levels are maintained at her normal 93 to 94% on 2 L. Her heart rate is 86 her blood pressure is within normal limits. Patient has home oxygen. I am going to go ahead and treat her as a COPD exacerbation with steroids and antibiotics and breathing treatments. I think at this time patient is more likely stable for discharge. 12/25/18 00:26 - Vital Signs Vital signs: Temp Pulse Resp BP Pulse Ox 98.5 F 89 26 H 150/67 H 93 12/24/18 21:16 12/24/18 21:16 12/24/18 23:01 12/24/18 23:00 12/24/18 23:01 - Laboratory Result Diagrams: 12/24/18 21:30 12/24/18 21:30 Laboratory results interpreted by me: 12/24/18 12/24/18 21:30 21:30 RBC 3.50 L Hgb 11.6 L Hct 33.8 L Potassium 3.3 L - EKG Interpretation by Oh EKG shows normal: Sinus rhythm, [place], Intervals, QRS Complexes, ST-T Waves Discharge - Discharge Clinical Impression: COPD (chronic obstructive pulmonary disease) Qualifiers: COPD type: unspecified COPD Qualified Code(s): J44.9 - Chronic obstructive pulmonary disease, unspecified Condition: Good Disposition: HOME, SELF-CARE Instructions: Chronic Obstructive Lung Disease ([facility]) Additional Instructions: Continue with your breathing treatments that you have at home. Begin the antibiotics and the steroids as instructed. If you are feeling worse and no better than it is very important that you return for repeat evaluation. I would like for you to wear your oxygen 24 hours a day. Please follow-up with your regular doctors. Return for any worsening symptoms or concerns. Prescriptions: Azithromycin [Zithromax 250 mg Tablet] 250 mg PO DAILY 5 Days #5 tablet Prednisone [Deltasone 20 mg Tablet] 3 tab PO DAILY 5 Days tablet Referrals: POLLY MCKENZIE PA-C [Primary Care Provider] - Follow up as needed
[2018-12-25] MEDS ORDERED: AZITHROMYCIN 250 MG TABLET PO ONE (00:15)
[2018-12-25] MEDS ORDERED: ALBUTEROL SULFATE 0.083% NEB 2.5 MG/3 ML AMPUL NEB ONE (00:16)
[2018-12-25 00:34] LABS: APPEARANCE,URINE CLEAR; BILIRUBIN,URINE NEGATIVE (NEGATIVE); COLOR,URINE STRAW; GLUCOSE, URINE NEGATIVE (NEGATIVE); KETONES,URINE NEGATIVE (NEGATIVE); LEUKOCYTE ESTERASE,URINE SMALL (NEGATIVE); NITRITE,URINE NEGATIVE (NEGATIVE); PROTEIN,URINE NEGATIVE (NEGATIVE); URINE SPECIFIC GRAVITY 1.005; UROBILINOGEN,URINE NEGATIVE mg/dL (<2.0)
[2018-12-25 01:17] VITALS: BP 144/76
--- NOTE | 2018-12-25 19:27 | EKG REPORT ---
SEVERITY:- NORMAL ECG - SINUS RHYTHM : Confirmed by: Jessica Salguero MD 25-Dec-2018 19:26:47
== END 2018-12-25 01:40 | disposition home or self-care (01) ==
LOC: ER 21:07
DX: J44.9 Chronic obstructive pulmonary disease, unspecified (principal); R06.02 Shortness of breath; R06.2 Wheezing; Z88.6 Allergy status to analgesic agent; Z99.81 Dependence on supplemental oxygen
CPT/HCPCS: 93005; 94640; 99285; 36415; 85025; 80053; 81001; 84484; 71045; 93010; A9270 ×2

== ENCOUNTER 2019-03-22 23:35 | Emergency (ER) | payer MEDICARE, MEDICAID ==
[2019-03-23] MEDS ORDERED: METHYLPREDNISOLONE INJ 125 MG/2 ML SDV IV ONE (00:19)
[2019-03-23] MEDS ORDERED: IPRATROPIUM/ALBUTEROL 0.5-2.5 MG/3 ML AMPUL NEB ONE (00:19)
--- NOTE | 2019-03-23 00:38 | ER Document Report ---
ED General - General Chief Complaint: Shortness Of Breath Stated Complaint: TROUBLE BREATHING Time Seen by Provider: 03/22/19 23:49 Primary Care Provider: POLLY MCKENZIE PA-C [Primary Care Provider] - Follow up in 3-5 days Notes: Patient is a 68-year-old female with COPD, chronic bronchitis and asthma that presents to the emergency department for chief complaint of cough and shortness of breath. Patient reports she is been having worsening cough, with occasional production and shortness of breath over the past few days, she is developed a headache due to the cough as well, she currently rates her headache as a 2 out of 10 describes as a global mild aching headache. She does wear oxygen at home, 2 L by nasal cannula at night, but she is wearing it the last 24 hours, to help with her increased shortness of breath. She denies any associated chest pain, but has been having some back pain associated with her cough as well. Denies any nausea, vomiting, abdominal pain, diarrhea, dysuria hematuria. She does not recall having any fevers, chills or night sweats at home either. She came in by EMS, was given albuterol and Atrovent, and apparently was improved afterwards. Past Medical History: Chronic bronchitis, asthma Past Surgical History: Rib resection, tubal ligation Social History: Admits to smoking cigarettes daily, denies alcohol or drug use. Family History: Reviewed and noncontributory for presenting illness Allergies: Reviewed, see documented allergy list. REVIEW OF SYSTEMS: Other than noted above, the 12 point review of systems was reviewed with the patient and were negative, all pertinent findings are included in the HPI. PHYSICAL EXAMINATION: Vital signs reviewed, nursing noted reviewed. GENERAL: Frail-appearing elderly female, appears older than stated age. HEAD: Atraumatic, normocephalic. EYES: Eyes appear normal, extraocular movements intact, sclera anicteric, conjun ctiva are normal. ENT: nares patent, oropharynx clear without exudates. Moist mucous membranes. NECK: Normal range of motion, supple without lymphadenopathy LUNGS: Diffuse expiratory wheezing noted throughout all lung musa, wet cough on exam, no respiratory distress, speaking in full sentences. HEART: Mild tachycardia, regular rhythm, no audible murmur ABDOMEN: Soft, nontender, normoactive bowel sounds. No rebound, guarding, or rigidity. No masses appreciated. EXTREMITIES: Nontender, good range of motion, no pitting or edema. NEUROLOGICAL: No focal neurological deficits. Moves all extremities spontaneously Motor and sensory grossly intact on exam. PSYCH: Normal mood, normal affect. SKIN: Warm, Dry, normal turgor, no rashes or lesions noted on exposed skin TRAVEL OUTSIDE OF THE [place] IN LAST 30 DAYS: No - Related Data Allergies/Adverse Reactions: ibuprofen [From Motrin] Allergy (Verified 08/22/15 17:44) SWELL Tetanus Vaccines and Toxoid [Tetanus] Allergy (Verified 08/22/15 17:44) Nausea Past Medical History - Social History Smoking Status: Current Every Day Smoker Family History: Arthritis, COPD, Malignancy - Several members in the family mother father brother had cancer. denies: None - Past Medical History Cardiac Medical History: Reports: Hx Hypercholesterolemia, Hx Hypertension Denies: Hx Coronary Artery Disease, Hx Heart Attack Pulmonary Medical History: Reports: Hx Asthma, Hx Bronchitis, Hx COPD, Hx Pneumonia Denies: Hx Tuberculosis Neurological Medical History: Denies: Hx Cerebrovascular Accident, Hx Seizures Renal/ Medical History: Denies: Hx Peritoneal Dialysis GI Medical History: Reports: Hx Gastroesophageal Reflux Disease. Denies: Hx Hepatitis, Hx Hiatal Hernia, Hx Ulcer Musculoskeletal Medical History: Reports Hx Arthritis Psychiatric Medical History: Reports: Hx Depression Infectious Medical History: Denies: Hx Hepatitis Past Surgical History: Reports: Hx Orthopedic Surgery - Fourth left rib resection for tumor., Hx Tubal Ligation. Denies: Hx Hysterectomy, Hx Mastectomy, Hx Open Heart Surgery, Hx Pacemaker - Immunizations Hx Diphtheria, Pertussis, Tetanus Vaccination: Yes Hx Pneumococcal Vaccination: 07/28/10 Physical Exam - Vital signs Vitals: Pulse Ox 95 03/23/19 00:04 Course - Re-evaluation Re-evalutation: Patient seen and examined vital signs reviewed. Laboratory data and/or imaging were ordered as appropriate for the patient's presenting symptoms and complaint, with consideration of any critical or life threatening conditions that may be associated with their obtained history and exam as noted above. Patient was treated with DuoNeb breathing treatments, IV Solu-Medrol, IV magnesium Results were reviewed when available and demonstrated chest x-ray consistent with possible pneumonia, blood work was essentially unremarkable, patient was given IV Rocephin, azithromycin, patient was not hypoxic, when I went to reevaluate her, she was sleeping and resting, her oxygen actually had come off her face, and she was 95% on room air at that point, oxygen was replaced back on her, she was not having any respiratory distress, discharge her home with a prescription for prednisone, and advised to continue her home medications, and take the prescribed Ceftin ear, and azithromycin and follow-up with her primary care. Evaluation was most consistent with community-acquired pneumonia, acute exacerbation of COPD. Results were discussed with the patient at this point, after careful consideration I feel that that patient can be discharged from the emergency department, the patient was educated treatments and reasons to return to the emergency department based on their presumed diagnosis as noted above, they were advised to followup with a primary care physician in 2-3 days. Patient was agreeable to plan of care. *Note is created using voice recognition software and may contain spelling, syntax or grammatical errors. Laboratory 03/23/19 03/23/19 03/23/19 00:44 00:44 00:44 WBC 10.1 RBC 3.40 L Hgb 11.0 L Hct 31.9 L MCV 94 MCH 32.3 MCHC 34.4 RDW 14.2 H Plt Count 248 Lymph % (Auto) 12.3 L [place] % (Auto) 10.6 Eos % (Auto) 0.6 Baso % (Auto) 0.3 Absolute Neuts (auto) 7.7 Absolute Lymphs (auto) 1.3 Absolute Monos (auto) 1.1 Absolute Eos (auto) 0.1 Absolute Basos (auto) 0.0 Seg Neutrophils % 76.2 Sodium 136.6 L Potassium 4.2 Chloride 98 Carbon Dioxide 30 Anion Gap 9 BUN 8 Creatinine 0.54 Est GFR ( Amer) > 60 Est GFR (MDRD) Non-Af > 60 Glucose 134 H Calcium 9.2 Total Bilirubin 0.6 Direct Bilirubin 0.4 Neonat Total Bilirubin Not Reportable Neonat Direct Bilirubin Not Reportable Neonat Indirect Bili Not Reportable AST 13 L ALT 7 Alkaline Phosphatase 107 Troponin I < 0.012 Total Protein 6.6 Albumin 3.9 Chest X-Ray 03/23/19 00:19 IMPRESSION: 1. New interstitial densities in the medial left upper lobe, suspicious for a developing pneumonia. 2. Hyperinflation as on prior exams, consistent with COPD. 3. Aortic calcifications, unchanged. - Vital Signs Vital signs: Temp Pulse Resp BP Pulse Ox 100.1 F 20 134/106 H 93 03/23/19 00:15 03/23/19 03:35 03/23/19 03:35 03/23/19 03:35 - Laboratory Result Diagrams: 03/23/19 00:44 03/23/19 00:44 Laboratory results interpreted by me: 03/23/19 03/23/19 00:44 00:44 RBC 3.40 L Hgb 11.0 L Hct 31.9 L RDW 14.2 H Lymph % (Auto) 12.3 L Sodium 136.6 L Glucose 134 H AST 13 L - EKG Interpretation by Me Additional EKG results interpreted by me: EKG demonstrates sinus tachycardia with a ventricular rate of 106 bpm, normal axis, normal intervals, no evidence of acute ischemia in this EKG, compared with prior EKG from 12/24/2018, without significant change. Discharge - Discharge Clinical Impression: COPD with acute exacerbation Pneumonia Qualifiers: Pneumonia type: due to unspecified organism Laterality: unspecified laterality Lung location: unspecified part of lung Qualified Code(s): J18.9 - Pneumonia, unspecified organism Condition: Stable Disposition: HOME, SELF-CARE Instructions: Chronic Obstructive Lung Disease ([facility]), Pneumonia ([facility]) Additional Instructions: Please complete the entire course of antibiotics as prescribed, there are 2 different antibiotics make sure you take both of them. You have also been prescribed prednisone, please take this once daily for the next 4 days, as directed. And please follow-up with your primary care physician, call for an appointment tomorrow. Prescriptions: Cefdinir 300 mg PO BID #20 capsule Prednisone 50 mg PO DAILY #20 tablet Azithromycin [Zithromax 250 mg Tablet] 250 mg PO ASDIR #6 tablet Referrals: POLLY MCKENZIE PA-C [Primary Care Provider] - Follow up in 3-5 days
[2019-03-23 00:52] LABS: ABSOLUTE EOSINOPHILS # (AUTO) 0.1 10^3/uL (0.0-0.6); ABSOLUTE LYMPHOCYTES (AUTO) 1.3 10^3/uL (0.5-4.7); ABSOLUTE MONOCYTES (AUTO) 1.1 10^3/uL (0.1-1.4); ABSOLUTE NEUT (AUTO) 7.7 10^3/uL (1.7-8.2); BASOPHILS % (AUTO) 0.3 % (0-2); EOSINOPHILS % (AUTO) 0.6 % (0-6); HEMATOCRIT 31.9 % (36.0-47.0); LYMPHOCYTES % (AUTO) 12.3 % (13-45); MEAN CORPUSCULAR HEMOGLOBIN 32.3 pg (27.0-33.4); MEAN CORPUSCULAR HGB CONC 34.4 g/dL (32.0-36.0); MEAN CORPUSCULAR VOLUME 94 fl (80-97); MONOCYTES % (AUTO) 10.6 % (3-13); PLATELET COUNT 248 10^3/uL (150-450); RED CELL DISTRIBUTION WIDTH 14.2 % (11.5-14.0); SEGMENTED NEUTROPHILS % (AUTO) 76.2 % (42-78); TOTAL CELLS COUNTED % (AUTO) 100 %; WHITE BLOOD COUNT 10.1 10^3/uL (4.0-10.5)
[2019-03-23 01:10] LABS: ALBUMIN 3.9 g/dL (3.5-5.0); ALKALINE PHOSPHATASE 107 U/L (38-126); ANION GAP 9 (5-19); ASPARTATE AMINO TRANSFERASE 13 U/L (14-36); BILIRUBIN,DIRECT 0.4 mg/dL (0.0-0.4); BILIRUBIN,TOTAL 0.6 mg/dL (0.2-1.3); BLOOD UREA NITROGEN 8 mg/dL (7-20); CALCIUM 9.2 mg/dL (8.4-10.2); CARBON DIOXIDE 30 mmol/L (22-30); CHLORIDE 98 mmol/L (98-107); GLUCOSE 134 mg/dL (75-110); POTASSIUM 4.2 mmol/L (3.6-5.0); TOTAL PROTEIN 6.6 g/dL (6.3-8.2)
[2019-03-23] MEDS ORDERED: BUDESONIDE NEB 0.5 MG/2 ML AMPUL NEB ONE (01:42)
[2019-03-23] MEDS ORDERED: MAGNESIUM SULFATE/D5W 1 GM/100 ML RTUPB IV ONE (01:42)
--- NOTE | 2019-03-23 01:55 | RADIOLOGY REPORT (SQ) ---
EXAM DESCRIPTION: [facility]: XR CHEST 1 VIEW CLINICAL HISTORY: 68 years Female, shortness of breath COMPARISON: 12/24/2018 FINDINGS: Lungs are hyperinflated as on prior exam, typical for COPD. There are slightly increased interstitial densities in the medial left upper lobe, new since prior exam. Lungs are otherwise unchanged. No pneumothorax. No significant pleural effusion. Aortic calcifications are again noted. Heart size is normal. Lower anterior cervical fixation plate is again noted. IMPRESSION: 1. New interstitial densities in the medial left upper lobe, suspicious for a developing pneumonia. 2. Hyperinflation as on prior exams, consistent with COPD. 3. Aortic calcifications, unchanged.
[2019-03-23] MEDS ORDERED: CEFTRIAXONE 2 GM/D5W RTU 2 GM/50 ML RTUPB IV ONE (02:01)
[2019-03-23] MEDS ORDERED: AZITHROMYCIN INJ 500 MG VIAL IV ONE (02:02)
--- NOTE | 2019-03-23 07:04 | EKG REPORT ---
SEVERITY:- OTHERWISE NORMAL ECG - SINUS TACHYCARDIA : Confirmed by: Evan Martins MD 23-Mar-2019 07:02:45
[2019-03-23 09:31] VITALS: BP 126/54
== END 2019-03-23 09:31 | disposition home or self-care (01) ==
LOC: ER 23:35
DX: J18.9 Pneumonia, unspecified organism (principal); J44.1 Chronic obstructive pulmonary disease with (acute) exacerbation; R06.02 Shortness of breath; R05 Cough; R51 Headache; Z99.81 Dependence on supplemental oxygen; F17.210 Nicotine dependence, cigarettes, uncomplicated; I10 Essential (primary) hypertension
CPT/HCPCS: 93005; 36415; 85025; 80053; 84484; 71045; 93010; J2930; J3475; J0456; A9270; J0696; J7620